=== PATIENT | male | born 1990 ===

== ENCOUNTER 2018-03-10 04:46 | Emergency (ER) | payer SELFPAY ==
[2018-03-10] MEDS ORDERED: Iohexol 240 (50 ml) PO STA (05:03)
[2018-03-10] MEDS ORDERED: Sodium Chloride 0.9% 1,000 ML IV STA ×2 (05:03→06:00)
--- NOTE | 2018-03-10 05:13 | C.PDOC ---
History Of Present Illness 27 year old male presents to the ED complaining of not feeling well for over one week. Complains of generalized body aches, subjective fever, nausea, vomiting, abdominal pain and headache. Denies any diarrhea, cough, urinary symptoms, weakness, numbness, or any other complaints. Chief Complaint (Nursing): Abdominal Pain History Per: Patient History/Exam Limitations: no limitations Onset/Duration Of Symptoms: Days Current Symptoms Are (Timing): Still Present Past Medical History Reviewed: Historical Data, Nursing Documentation, Vital Signs Vital Signs: Last Vital Signs Temp 98.9 F 03/10/18 04:55 Pulse 85 03/10/18 04:55 Resp 16 03/10/18 04:55 BP 119/66 03/10/18 04:55 Pulse Ox 97 03/10/18 04:55 - Medical History PMH: No Chronic Diseases Other Surgeries: Hx of surgeries Family History: States: No Known Family Hx - Social History Hx Alcohol Use: No Hx Substance Use: No Review Of Systems Except As Marked, All Systems Reviewed And Found Negative. Constitutional: Positive for: Fever, Other (bodyaches ) Respiratory: Negative for: Cough Gastrointestinal: Positive for: Nausea, Vomiting, Abdominal Pain. Negative for: Diarrhea Genitourinary: Negative for: Dysuria, Hematuria, Penile Discharge Neurological: Positive for: Headache. Negative for: Weakness, Numbness Physical Exam - Physical Exam Appears: Non-toxic, No Acute Distress Skin: Warm, Dry, No Rash Head: Normacephalic Eye(s): bilateral: Normal Inspection Ear(s): Bilateral: Normal Nose: Normal Oral Mucosa: Moist Tongue: Normal Appearing, No Lesions Lips: Normal Appearing, No Lesions Gingiva: No Ulceration Throat: No Erythema, No Exudate Neck: Normal ROM, Supple Chest: Symmetrical Cardiovascular: Rhythm Regular Respiratory: Normal Breath Sounds, No Rales, No Rhonchi, No Wheezing Gastrointestinal/Abdominal: Soft, Tenderness (diffused tenderness, more to the RLQ) Extremity: Normal ROM Neurological/Psych: Oriented x3, Normal Speech, Normal Cognition Gait: Steady ED Course And Treatment - Laboratory Results Result Diagrams: 03/10/18 05:15 03/10/18 05:15 O2 Sat by Pulse Oximetry: 97 (RA) Pulse Ox Interpretation: Normal Progress Note: CT scan Abd/Pel ordered and reviewed. Blood and Urine collected and sent to the lab for analysis. Patient given Zofran, Protonix, and IV fluids. Patient now refusing abdominal CT and stating he was seen in [facility] ([place]) yesterday, had blood work and CT of abdomen with negative results,. Paatient was told he has viral syndrom and was d/c home. However patient sts he still doesn't feel good that prompted ER visit. IV fluid started, Toradol IV ordered. On re-evaluation patient feels better and is stable to be d/c home with PMD/Clinic follow up. patient was instructed to return to Ed immediately if he feels worse. Disposition - Disposition Disposition: HOME/ ROUTINE Disposition Time: 06:46 Condition: IMPROVED Additional Instructions: Follow up with PMD/clinic within 1-2 days. Return to Ed if feel worse. Prescriptions: Ibuprofen [Motrin Tab] 600 mg PO Q8 #30 tab Ondansetron ODT [Zofran ODT] 4 mg PO .Q4-6H PRN #20 odt PRN Reason: Nausea/Vomiting Instructions: Viral Syndrome (DC) Forms: [employer] (Liberian) Print Language: ARMENIAN - Clinical Impression Clinical Impression: Viral syndrome - PA / DYNAMICS AX TECHNICAL ARCHITECT / Resident Statement MD/DO has reviewed & agrees with the documentation as recorded. - Scribe Statement The provider has reviewed the documentation as recorded by the Scribmatt Melton All medical record entries made by the Neville were at my direction and personally dictated by me. I have reviewed the chart and agree that the record accurately reflects my personal performance of the history, physical exam, medical decision making, and the department course for this patient. I have also personally directed, reviewed, and agree with the discharge instructions and disposition. Physician Patient Turnover Patient Signed Over To: ED Physician,
[2018-03-10 05:19] LABS: BASO % 0.2 % (0.0-2.0); EOS % 0.1 % (0.0-4.0); HEMOGLOBIN 13.8 g/dL (12.0-18.0); LYMPH # 1.1 K/uL (1.0-4.3); LYMPH % 13.1 % (20.0-40.0); MEAN CELL VOLUME 90.2 fL (80.0-94.0); MEAN CORPUSCULAR HEMOGLOBIN 31.4 pg (27.0-31.0); MEAN CORPUSCULAR HGB CONC 34.8 g/dL (33.0-37.0); MEAN PLATELET VOLUME 6.7 fL (7.2-11.7); MONO # 0.7 K/uL (0.0-0.8); MONO % 8.6 % (0.0-10.0); NEUT # 6.7 K/uL (1.8-7.0); RBC 4.39 Mil/uL (4.40-5.90); RED CELL DISTRIBUTION WIDTH 12.2 % (11.5-14.5); WHITE BLOOD COUNT 8.5 K/uL (4.8-10.8)
[2018-03-10 05:34] LABS: ALB/GLOB RATIO 1.4 (1.0-2.1); ALBUMIN 4.1 g/dL (3.5-5.0); ALT/SGPT 27 U/L (21-72); AMYLASE 68 U/L (30-110); AST/SGOT 22 U/L (17-59); BLOOD UREA NITROGEN 12 mg/dL (9-20); CALCIUM 8.4 mg/dl (8.6-10.4); GFR NON-AFRICAN AMERICAN > 60; LIPASE 43 U/L (23-300)
[2018-03-10 06:15] LABS: URINE BILIRUBIN NEGATIVE (NEGATIVE); URINE BLOOD NEGATIVE (NEGATIVE); URINE CLARITY Clear (Clear); URINE COLOR Yellow (YELLOW); URINE GLUCOSE (UA) NORMAL (Normal); URINE LEUKOCYTE ESTERASE NEG Leu/uL (Negative); URINE PROTEIN NEGATIVE (NEGATIVE)
[2018-03-10 07:11] VITALS: BP 128/72; PULSE 79; RESP 20; TEMP 98.2; O2SAT 98
== END 2018-03-10 07:06 | disposition home or self-care (01) ==
LOC: C.ER 04:46
DX: B34.9 Viral infection, unspecified (principal)
CPT/HCPCS: 80053; 81001; 82150; 83690; 85025; 87040; 87086; 87181; 87205; 87804; 96361; 96374; 96375; 99284; C9113; J1885; J2405; J7030

== ENCOUNTER 2018-03-11 10:56 | Inpatient (IN) | payer OTHER ==
[2018-03-11] MEDS ORDERED: Piperacillin/Tazobact 3.375 gm 100 ML IV STA (11:21)
--- NOTE | 2018-03-11 11:30 | C.PDOC ---
History Of Present Illness 27 y/o male, with PMHx of right-sided testicular cancer s/p orchiectomy and 4 months of chemotherapy in [place] (2012), returns to ER after being seen here yesterday. Patient had complaints of body aches, chills, headache, and malaise, and was discharged home after feeling better. Patient was called by a PA to return to ER today for positive blood cultures. He states he currently feels better overall but still has some headache and body aches. Time Seen by Provider: 03/11/18 11:02 Chief Complaint (Nursing): Abnormal Labs History Per: Patient History/Exam Limitations: no limitations Onset/Duration Of Symptoms: Days Current Symptoms Are (Timing): Still Present Past Medical History Reviewed: Historical Data, Nursing Documentation, Vital Signs Vital Signs: Last Vital Signs Temp 99.7 F H 03/11/18 11:01 Pulse 100 H 03/11/18 11:01 Resp 18 03/11/18 11:01 BP 115/77 03/11/18 11:01 Pulse Ox 99 03/11/18 11:01 Family History: States: No Known Family Hx - Social History Hx Alcohol Use: Yes Hx Substance Use: No - Immunization History Hx Tetanus Toxoid Vaccination: No Hx Influenza Vaccination: No Hx Pneumococcal Vaccination: No Review Of Systems Constitutional: Negative for: Fever, Chills Gastrointestinal: Negative for: Nausea, Vomiting Musculoskeletal: Positive for: Other (Body aches) Neurological: Positive for: Headache Physical Exam - Physical Exam Appears: Non-toxic, No Acute Distress Skin: Warm, Dry Head: Atraumatic, Normacephalic Eye(s): bilateral: Normal Inspection Oral Mucosa: Moist Chest: Symmetrical Cardiovascular: Rhythm Regular, No Murmur Respiratory: Normal Breath Sounds, No Rales, No Rhonchi, No Wheezing Gastrointestinal/Abdominal: Tenderness (to suprapubic area, mild), No Guarding, No Rebound, Other (Negative McBurney's) Neurological/Psych: Oriented x3, Normal Speech Gait: Steady ED Course And Treatment - Laboratory Results Result Diagrams: 03/19/18 08:13 03/19/18 08:13 O2 Sat by Pulse Oximetry: 99 (RA) Pulse Ox Interpretation: Normal - Other Rad Chest X-Ray X-Ray: Read By Radiologist Interpretation: FINDINGS: LUNGS: Poor inspiration with low lung volumes, crowded bronchovascular markings and minor bibasilar atelectasis. PLEURA: No significant pleural effusion identified. No pneumothorax apparent. CARDIOVASCUL AR: No aortic atherosclerotic calcification present. Normal cardiac size. No pulmonary vascular congestion. OSSEOUS STRUCTURES: No significant abnormalities. VISUALIZED UPPER ABDOMEN: Normal. OTHER FINDINGS: None. IMPRESSION: Poor inspiration with low lung volumes, crowded bronchovascular markings and minor bibasilar atelectasis Progress Note: Bloodwork, UA, repeat blood cultures, and CXR ordered. Patient given IV Zosyn. - Physician Consult Information Physician Contacted: Alba Lee Outcome Of Conversation: Discussed patient with hospitalist, agrees with admission for bacteremia (gran neg rods). Disposition - Disposition Disposition: HOSPITALIZED Disposition Time: 13:33 Condition: STABLE - Clinical Impression Clinical Impression: Bacteremia due to Gram-negative bacteria - Scribe Statement The provider has reviewed the documentation as recorded by the Vinicioibmatt Mendoza Provider Attestation: All medical record entries made by the Scribe were at my direction and pe rsonally dictated by me. I have reviewed the chart and agree that the record accurately reflects my personal performance of the history, physical exam, medical decision making, and the department course for this patient. I have also personally directed, reviewed, and agree with the discharge instructions and disposition. Decision To Admit - Pt Status Changed To: Hospital Disposition Of: Inpatient - Admit Certification Admit to Inpatient:: After my assessment, the patient will require hospitalization for at least two midnights. This is because of the severity of symptoms shown, intensity of services needed, and/or the medical risk in this patient being treated as an outpatient. - InPatient: Physician Admission Certification: I certify that this patient requires 2 or more midnights of care for the following reason:: see notes - . Bed Request Type: Regular Admitting Physician: Alba Lee Patient Diagnosis: Bacteremia due to Gram-negative bacteria
[2018-03-11 12:00] LABS: BASO % 0.2 % (0.0-2.0); EOS % 0.1 % (0.0-4.0); HEMOGLOBIN 14.4 g/dL (12.0-18.0); LYMPH % 18.9 % (20.0-40.0); MEAN CELL VOLUME 91.5 fL (80.0-94.0); MEAN CORPUSCULAR HEMOGLOBIN 32.2 pg (27.0-31.0); MEAN CORPUSCULAR HGB CONC 35.1 g/dL (33.0-37.0); MEAN PLATELET VOLUME 6.4 fL (7.2-11.7); MONO # 0.6 K/uL (0.0-0.8); MONO % 10.9 % (0.0-10.0); NEUT # 3.8 K/uL (1.8-7.0); NEUT % 69.9 % (50.0-75.0); NRBC % 0.1 % (0.0-2.0); RBC 4.48 Mil/uL (4.40-5.90); RED CELL DISTRIBUTION WIDTH 12.2 % (11.5-14.5); WHITE BLOOD COUNT 5.4 K/uL (4.8-10.8)
[2018-03-11 12:00] LABS: VENOUS BLOOD GAS BASE EXCESS 2.4 mmol/L (0.0-2.0); VENOUS BLOOD GAS PCO2 51 mmHg (40-60); VENOUS BLOOD GAS PO2 27 mm/Hg (30-55); VENOUS BLOOD PH 7.36 (7.32-7.43)
[2018-03-11 12:10] LABS: URINE BILIRUBIN NEGATIVE (NEGATIVE); URINE BLOOD NEGATIVE (NEGATIVE); URINE CLARITY Clear (Clear); URINE COLOR Yellow (YELLOW); URINE GLUCOSE (UA) NORMAL (Normal); URINE LEUKOCYTE ESTERASE NEG Leu/uL (Negative); URINE PROTEIN NEGATIVE (NEGATIVE)
[2018-03-11 12:14] LABS: ALB/GLOB RATIO 1.3 (1.0-2.1); ALBUMIN 4.2 g/dL (3.5-5.0); ALT/SGPT 29 U/L (21-72); AST/SGOT 28 U/L (17-59); BLOOD UREA NITROGEN 13 mg/dL (9-20); CALCIUM 9.2 mg/dl (8.6-10.4); GFR NON-AFRICAN AMERICAN > 60
[2018-03-11] MEDS ORDERED: Piperacillin/Tazobact 3.375 gm 100 ML IVPB ONE (12:23)
--- NOTE | 2018-03-11 15:24 | CP.PCM.HP ---
<Argenis William - Last Filed: 03/11/18 15:18> History of Present Illness - History of Present Illness History of Present Illness: Argenis William PGY1 H&P Pt is a 27yo M with PMH testicular cancer s/p orchiectomy and chemo in 2012, presenting to ED after being told he has positive blood cultures. Pt reports subjective fevers, chills, body aches, nausea, 2 episodes of NB/NB vomiting that began on Monday. He visited the [facility] ED later that week, received a CT of the abdomen which he reports was normal, and was sent home. He visited [facility] ED on 03/10, refused to be scanned again, but blood and urine cultures were obtained. He was discharged before given results, and was later called to return because blood culture was positive for Gram - rods. Pt return to [facility] ED today, but says symptoms have resolved. Pt also reports 10lb weight loss over the past year, claiming he feels full faster than before and has decreased appetite. He denies any chest pain, shortness of breath, abdominal pain, diarrhea, dysuria, pyuria, or difficulty urinating. PMH: testicular cancer s/p orchiectomy and chemo in 2012, followed for 4 years after and was told he was clear. did not follow this year SxH: orchiectomy 2013 FamH: denies SocH: denies tobacco, alcohol, recreational drug use. works in a restaurant Allergies: NKDA Meds: none PMD: none Present on Admission - Present on Admission Any Indicators Present on Admission: No Review of Systems - Review of Systems Review of Systems: as per HPI Past Patient History - Past Social History Smoking Status: Never Smoked - HEMATOLOGICAL/ONCOLOGICAL Hx Blood Disorders: Yes Hx Cancer: Yes (testicular - removed) - PSYCHIATRIC Hx Substance Use: No - SURGICAL HISTORY Hx Surgeries: Yes Other/Comment: removal of cancerous testicle Meds Allergies/Adverse Reactions: Allergies Allergy/AdvReac Type Severity Reaction Status Date / Time No Known Allergies Allergy Verified 03/11/18 11:05 Physical Exam - Constitutional Appears: Well, Non-toxic, No Acute Distress - Head Exam Head Exam: ATRAUMATIC, NORMOCEPHALIC - Eye Exam Eye Exam: EOMI, Normal appearance, PERRL - ENT Exam ENT Exam: Mucous Membranes Moist - Neck Exam Neck exam: Positive for: Full Rom, Normal Inspection. Negative for: Lymphadenopathy, Tenderness - Respiratory Exam Respiratory Exam: Clear to Auscultation Bilateral, NORMAL BREATHING PATTERN. absent: Rales, Rhonchi, Wheezes, Respiratory Distress - Cardiovascular Exam Cardiovascular Exam: REGULAR RHYTHM, +S1. absent: Gallop, Rubs, +S2, Systolic Murmur - GI/Abdominal Exam GI & Abdominal Exam: Normal Bowel Sounds, Soft. absent: Distended, Firm, Tenderness - Extremities Exam Extremities exam: Positive for: normal inspection. Negative for: pedal edema - Neurological Exam Neurological exam: Alert, CN II-XII Intact, Oriented x3 - Psychiatric Exam Psychiatric exam: Normal Affect, Normal Mood - Skin Skin Exam: Normal Color Results - Vital Signs Recent Vital Signs: Last Vital Signs Temp 98.7 F 03/11/18 13:24 Pulse 74 03/11/18 13:24 Resp 18 03/11/18 13:24 BP 123/71 03/11/18 13:24 Pulse Ox 99 03/11/18 13:41 - Labs Result Diagrams: 03/11/18 11:51 03/11/18 11:51 Labs: Laboratory Results - last 24 hr 03/11/18 03/11/18 03/11/18 11:51 11:51 11:51 WBC 5.4 RBC 4.48 Hgb 14.4 Hct 41.0 MCV 91.5 MCH 32.2 H MCHC 35.1 RDW 12.2 Plt Count 178 MPV 6.4 L Neut % (Auto) 69.9 Lymph % (Auto) 18.9 L [place] % (Auto) 10.9 H Eos % (Auto) 0.1 Baso % (Auto) 0.2 Neut # (Auto) 3.8 Lymph # (Auto) 1.0 [place] # (Auto) 0.6 Eos # (Auto) 0.0 Baso # (Auto) 0.0 pO2 VBG pH VBG pCO2 VBG HCO3 VBG Total CO2 VBG O2 Sat (Calc) VBG Base Excess VBG Potassium Glucose Lactate Sodium 138 Potassium 4.0 Chloride 100 Carbon Dioxide 28 Anion Gap 14 BUN 13 Creatinine 0.8 Est GFR ( Amer) > 60 Est GFR (Non-Af Amer) > 60 Random Glucose 82 Calcium 9.2 Total Bilirubin 0.6 AST 28 ALT 29 Alkaline Phosphatase 55 Total Protein 7.4 Albumin 4.2 Globulin 3.2 Albumin/Globulin Ratio 1.3 Venous Blood Potassium Urine Color Yellow Urine Clarity Clear Urine pH 8.0 Ur Specific [place] 1.019 Urine Protein Negative Urine Glucose (UA) Normal Urine Ketones Negative Urine Blood Negative Urine Nitrate Negative Urine Bilirubin Negative Urine Urobilinogen 4.0 Ur Leukocyte Esterase Neg Urine WBC (Auto) 1 Urine RBC (Auto) 2 03/11/18 11:54 WBC RBC Hgb Hct MCV MCH MCHC RDW Plt Count MPV Neut % (Auto) Lymph % (Auto) Y[place] % (Auto) Eos % (Auto) Baso % (Auto) Neut # (Auto) Lymph # (Auto) [place] # (Auto) Eos # (Auto) Baso # (Auto) pO2 27 L VBG pH 7.36 VBG pCO2 51 VBG HCO3 25.4 VBG Total CO2 30.4 H VBG O2 Sat (Calc) 58.4 VBG Base Excess 2.4 H VBG Potassium 3.7 Glucose 77 Lactate 1.9 Sodium 138.0 Potassium Chloride 105.0 Carbon Dioxide Anion Gap BUN Creatinine Est GFR ( Amer) Est GFR (Non-Af Amer) Random Glucose Calcium Total Bilirubin AST ALT Alkaline Phosphatase Total Protein Albumin Globulin Albumin/Globulin Ratio Venous Blood Potassium 3.7 Urine Color Urine Clarity Urine pH Ur Specific [place] Urine Protein Urine Glucose (UA) Urine Ketones Urine Blood Urine Nitrate Urine Bilirubin Urine Urobilinogen Ur Leukocyte Esterase Urine WBC (Auto) Urine RBC (Auto) Assessment & Plan - Assessment and Plan (Free Text) Assessment: 27yo M with H testicular cancer s/p orchiectomy and chemo in 2012, admitted for further evaluation and treatment of Gram - consuelo bacteremia. Plan: Bacteremia - BCx: Gram - consuelo - pt afebrile, no leukocytosis, asymptomatic - UCx: neg - UA: neg - f/u rpt BCx - f/u CXR - ID consulted, Dr. Florence - f/u recs Testicular Cancer - s/p orchiectomy and chemo in 2012 - encourage outpt follow up with oncology PPX DVT: SCDs HHD Patient seen with and case discussed with Dr. Joshi <Ahmet Joshi - Last Filed: 03/11/18 17:13> Results - Vital Signs Recent Vital Signs: Last Vital Signs Temp 98 F 03/11/18 15:38 Pulse 62 03/11/18 15:38 Resp 18 03/11/18 15:38 BP 136/69 03/11/18 15:38 Pulse Ox 100 03/11/18 15:38 - Labs Result Diagrams: 03/11/18 11:51 03/11/18 11:51 Labs: Laboratory Results - last 24 hr 03/11/18 03/11/18 03/11/18 11:51 11:51 11:51 WBC 5.4 RBC 4.48 Hgb 14.4 Hct 41.0 MCV 91.5 MCH 32.2 H MCHC 35.1 RDW 12.2 Plt Count 178 MPV 6.4 L Neut % (Auto) 69.9 Lymph % (Auto) 18.9 L [place] % (Auto) 10.9 H Eos % (Auto) 0.1 Baso % (Auto) 0.2 Neut # (Auto) 3.8 Lymph # (Auto) 1.0 [place] # (Auto) 0.6 Eos # (Auto) 0.0 Baso # (Auto) 0.0 pO2 VBG pH VBG pCO2 VBG HCO3 VBG Total CO2 VBG O2 Sat (Calc) VBG Base Excess VBG Potassium Glucose Lactate Sodium 138 Potassium 4.0 Chloride 100 Carbon Dioxide 28 Anion Gap 14 BUN 13 Creatinine 0.8 Est GFR ( Amer) > 60 Est GFR (Non-Af Amer) > 60 Random Glucose 82 Calcium 9.2 Total Bilirubin 0.6 AST 28 ALT 29 Alkaline Phosphatase 55 Total Protein 7.4 Albumin 4.2 Globulin 3.2 Albumin/Globulin Ratio 1.3 Venous Blood Potassium Urine Color Yellow Urine Clarity Clear Urine pH 8.0 Ur Specific [place] 1.019 Urine Protein Negative Urine Glucose (UA) Normal Urine Ketones Negative Urine Blood Negative Urine Nitrate Negative Urine Bilirubin Negative Urine Urobilinogen 4.0 Ur Leukocyte Esterase Neg Urine WBC (Auto) 1 Urine RBC (Auto) 2 03/11/18 11:54 WBC RBC Hgb Hct MCV MCH MCHC RDW Plt Count MPV Neut % (Auto) Lymph % (Auto) [place] % (Auto) Eos % (Auto) Baso % (Auto) Neut # (Auto) Lymph # (Auto) [place] # (Auto) Eos # (Auto) Baso # (Auto) pO2 27 L VBG pH 7.36 VBG pCO2 51 VBG HCO3 25.4 VBG Total CO2 30.4 H VBG O2 Sat (Calc) 58.4 VBG Base Excess 2.4 H VBG Potassium 3.7 Glucose 77 Lactate 1.9 Sodium 138.0 Potassium Chloride 105.0 Carbon Dioxide Anion Gap BUN Creatinine Est GFR ( Amer) Est GFR (Non-Af Amer) Random Glucose Calcium Total Bilirubin AST ALT Alkaline Phosphatase Total Protein Albumin Globulin Albumin/Globulin Ratio Venous Blood Potassium 3.7 Urine Color Urine Clarity Urine pH Ur Specific [place] Urine Protein Urine Glucose (UA) Urine Ketones Urine Blood Urine Nitrate Urine Bilirubin Urine Urobilinogen Ur Leukocyte Esterase Urine WBC (Auto) Urine RBC (Auto) Attending/Attestation - Attestation I have personally seen and examined this patient.: Yes I have fully participated in the care of the patient.: Yes I have reviewed all pertinent clinical information: Yes Notes (Text): Patient seen and examined with the residents, agree with above no complaints at this this time. Denies fever/chills/cough/chest pain/sob/n/v/d/c/abdominal pain/urinary complaints blood cultures x2 with gram negative bacteremia. Will repeat blood cx today Afebrile, no leukocytosis. Will get ID with Dr Florence for his expert opinion.
--- NOTE | 2018-03-11 15:47 | RAD ---
Date of service: 03/11/2018 HISTORY: bacteremia COMPARISON: No prior. TECHNIQUE: Chest PA and lateral FINDINGS: LUNGS: Poor inspiration with low lung volumes, crowded bronchovascular markings and minor bibasilar atelectasis PLEURA: No significant pleural effusion identified. No pneumothorax apparent. CARDIOVASCULAR: No aortic atherosclerotic calcification present. Normal cardiac size. No pulmonary vascular congestion. OSSEOUS STRUCTURES: No significant abnormalities. VISUALIZED UPPER ABDOMEN: Normal. OTHER FINDINGS: None. IMPRESSION: Poor inspiration with low lung volumes, crowded bronchovascular markings and minor bibasilar atelectasis
--- NOTE | 2018-03-11 17:42 | CP.PCM.CON ---
History of Present Illness - History of Present Illness History of Present Illness: 27 yo male was recently seen in ER in [facility] for flu like symptoms, subsequently came to for follow up where blood cultures were drawn which came back positive for gram negative rods Now admitted for treatment of the same hx reviewed + PMH of testicular Ca 2013 Review of Systems - Review of Systems All systems: reviewed and no additional remarkable complaints except - Constitutional Constitutional: As Per HPI - EENT Eyes: absent: As Per HPI, Blind Spots, Blurred Vision, Change in Vision, Decreased Night Vision, Diplopia, Discharge, Dry Eye, Exophthalmos, Floaters, Irritation, Itchy Eyes, Loss of Peripheral Vision, Pain, Photophobia, Requires Corrective Lenses, Sees Flashes, Spots in Vision, Tunnel Vision, Other Visual Disturbances, Loss of Vision, Other Ears: absent: As Per HPI, Decreased Hearing, Ear Discharge, Ear Pain, Tinnitus, Abnormal Hearing, Disequilibrium, Dizziness, Other Nose/Mouth/Throat: absent: As Per HPI, Epistaxis, Nasal Congestion, Nasal Discharge, Nasal Obstruction, Nasal Trauma, Nose Pain, Post Nasal Drip, Sinus Pain, Sinus Pressure, Bleeding Gums, Change in Voice, Dental Pain, Dry Mouth, Dysphagia, Halitosis, Hoarsness, Lip Swelling, Mouth Lesions, Mouth Pain, Odynophagia, Sore Throat, Throat Swelling, Tongue Swelling, Facial Pain, Neck Pain, Neck Mass, Other - Cardiovascular Cardiovascular: absent: As Per HPI, Acrocyanosis, Chest Pain, Chest Pain at Rest, Chest Pain with Activity, Claudication, Diaphoresis, Dyspnea, Dyspnea on Exertion, Edema, Irregular Heart Rhythm, Pain Radiating to Arm/Neck/Jaw, Leg Edema, Leg Ulcers, Lightheadedness, Orthopnea, Palpitations, Paroxysmal Nocturnal Dyspnea, Pedal Edema, Radiating Pain, Rapid Heart Rate, Slow Heart Rate, Syncope, Other - Respiratory Respiratory: absent: As Per HPI, Cough, Dyspnea, Hemoptysis, Dyspnea on Exertion, Wheezing, Snoring, Stridor, Pain on Inspiration, Chest Congestion, Excessive Mucous Production, Change in Mucous Color, Pain with Coughing, Other - Gastrointestinal Gastrointestinal: absent: As Per HPI, Abdominal Pain, Belching, Bloating, Change in Bowel Habits, Change in Stool Character, Coffee Ground Emesis, Constipation, Cramping, Diarrhea, Dyspepsia, Dysphagia, Early Satiety, Excessive Flatus, Fecal Incontinence, Heartburn, Hematemesis, Hematochezia, Loose Stools, Melena, Nausea, Odynophagia, Temesmus, Vomiting, Other - Genitourinary Genitourinary: absent: As Per HPI, Change in Urinary Stream, Difficulty Urinating, Dysuria, Flank Pain, Hematuria, Pyuria, Nocturia, Urinary Incontinence, Urinary Frequency, Urinary Hesitance, Urinary Urgency, Voiding Freq/Small Amts, Freq UTI, Hx Renal/Bladder Calculi, Hx /Renal Surgery, Bladder Distension, Other - Reproductive: Male Reproductive:Male: As Per HPI - Musculoskeletal Musculoskeletal: absent: As Per HPI, Abnormal Gait, Arthralgias, Atrophy, Back Pain, Deformity, Joint Swelling, Limited Range of Motion, Loss of Height, Muscle Cramps, Muscle Weakness, Myalgias, Neck Pain, Numbness, Radiating Pain into Limb, Stiffness, Tingling, Other - Integumentary Integumentary: absent: As Per HPI, Acne, Alopecia, Bleeding Lesions, Change in Hair, Change in Nails, Change in Pigmentation, Changing Lesions, Dry Skin, Erythema, Furuncle, Hirsutism, Lesions, New Lesions, Non-Healing Lesions, Photosensitivity, Pruritus, Rash, Skin Pain, Skin Ulcer, Sores, Striae, Swelling, Unusual Bruising, Wounds, Jaundice, Other - Neurological Neurological: absent: As Per HPI, Abnormal Gait, Abnormal Hearing, Abnormal Movements, Abnormal Speech, Behavioral Changes, Burning Sensations, Confusion, Convulsions, Disequilibrium, Dizziness, Numbness, Focal Weakness, Frequent Falls, Headaches, Lack of Coordination, Loss of Vision, Memory Loss, Paresthesias, Radicular Pain, Restless Legs, Sensory Deficit, Syncope, Tingling, Tremor, Vertigo, Weakness, Other Visual Disturbances, Other - Psychiatric Psychiatric: absent: As Per HPI, Abnormal Sleep Pattern, Anhedonia, Anxiety, Auditory Hallucinations, Behavioral Changes, Change in Appetite, Change in Libido, Confusion, Depression, Difficulty Concentrating, Hallucinations, Homicidal Ideation, Hopelessness, Irritability, Memory Loss, Mood Swings, Panic Attacks, Paranoia, Suicidal Ideation, Visual Hallucinations, Tactile Hallucinations, Other - Endocrine Endocrine: absent: As Per HPI, Change in Body Appearance, Change in Libido, Cold Intolorance, Deepening of Voice, Excessive Sweating, Fatigue, Flushing, Heat Intolorance, Increase in Ring/Shoe/Hat Size, Palpitations, Polydipsia, Polyphagia, Polyuria, Other - Hematologic/Lymphatic Hematologic: As Per HPI Past Patient History - Past Social History Smoking Status: Never Smoked - HEMATOLOGICAL/ONCOLOGICAL Hx Blood Disorders: Yes Hx Cancer: Yes (testicular - removed) - PSYCHIATRIC Hx Substance Use: No - SURGICAL HISTORY Hx Surgeries: Yes Other/Comment: removal of cancerous testicle Meds Allergies/Adverse Reactions: Allergies Allergy/AdvReac Type Severity Reaction Status Date / Time No Known Allergies Allergy Verified 03/11/18 11:05 - Medications Medications: Current Medications Piperacillin Sod/Tazobactam Sod (Zosyn 3.375 Gm Iv Premix) 3.375 gm in 50 mls @ 200 mls/hr IVPB Q8H [facility]; Protocol Ondansetron HCl (Zofran Inj) 4 mg IVP Q6 PRN PRN Reason: Nausea/Vomiting Physical Exam - Constitutional Appears: Non-toxic, No Acute Distress - Head Exam Head Exam: NORMOCEPHALIC - Eye Exam Eye Exam: Scleral icterus - ENT Exam ENT Exam: Mucous Membranes Dry - Neck Exam Neck exam: Positive for: Normal Inspection - Respiratory Exam Respiratory Exam: Clear to Auscultation Bilateral - Cardiovascular Exam Cardiovascular Exam: REGULAR RHYTHM - GI/Abdominal Exam GI & Abdominal Exam: Soft - Rectal Exam Rectal Exam: Deferred - Extremities Exam Extremities exam: Positive for: full ROM - Back Exam Back exam: FULL ROM - Neurological Exam Neurological exam: Alert, CN II-XII Intact, Oriented x3 - Psychiatric Exam Psychiatric exam: Normal Mood - Skin Skin Exam: Dry Results - Vital Signs Recent Vital Signs: Last Vital Signs Temp 98 F 03/11/18 15:38 Pulse 62 03/11/18 15:38 Resp 18 03/11/18 15:38 BP 136/69 03/11/18 15:38 Pulse Ox 99 03/11/18 17:32 - Labs Result Diagrams: 03/11/18 11:51 03/11/18 11:51 Labs: Laboratory Results - last 24 hr 03/11/18 03/11/18 03/11/18 11:51 11:51 11:51 WBC 5.4 RBC 4.48 Hgb 14.4 Hct 41.0 MCV 91.5 MCH 32.2 H MCHC 35.1 RDW 12.2 Plt Count 178 MPV 6.4 L Neut % (Auto) 69.9 Lymph % (Auto) 18.9 L [place] % (Auto) 10.9 H Eos % (Auto) 0.1 Baso % (Auto) 0.2 Neut # (Auto) 3.8 Lymph # (Auto) 1.0 [place] # (Auto) 0.6 Eos # (Auto) 0.0 Baso # (Auto) 0.0 pO2 VBG pH VBG pCO2 VBG HCO3 VBG Total CO2 VBG O2 Sat (Calc) VBG Base Excess VBG Potassium Glucose Lactate Sodium 138 Potassium 4.0 Chloride 100 Carbon Dioxide 28 Anion Gap 14 BUN 13 Creatinine 0.8 Est GFR ( Amer) > 60 Est GFR (Non-Af Amer) > 60 Random Glucose 82 Calcium 9.2 Total Bilirubin 0.6 AST 28 ALT 29 Alkaline Phosphatase 55 Total Protein 7.4 Albumin 4.2 Globulin 3.2 Albumin/Globulin Ratio 1.3 Venous Blood Potassium Urine Color Yellow Urine Clarity Clear Urine pH 8.0 Ur Specific [place] 1.019 Urine Protein Negative Urine Glucose (UA) Normal Urine Ketones Negative Urine Blood Negative Urine Nitrate Negative Urine Bilirubin Negative Urine Urobilinogen 4.0 Ur Leukocyte Esterase Neg Urine WBC (Auto) 1 Urine RBC (Auto) 2 03/11/18 11:54 WBC RBC Hgb Hct MCV MCH MCHC RDW Plt Count MPV Neut % (Auto) Lymph % (Auto) [place] % (Auto) Eos % (Auto) Baso % (Auto) Neut # (Auto) Lymph # (Auto) [place] # (Auto) Eos # (Auto) Baso # (Auto) pO2 27 L VBG pH 7.36 VBG pCO2 51 VBG HCO3 25.4 VBG Total CO2 30.4 H VBG O2 Sat (Calc) 58.4 VBG Base Excess 2.4 H VBG Potassium 3.7 Glucose 77 Lactate 1.9 Sodium 138.0 Potassium Chloride 105.0 Carbon Dioxide Anion Gap BUN Creatinine Est GFR ( Amer) Est GFR (Non-Af Amer) Random Glucose Calcium Total Bilirubin AST ALT Alkaline Phosphatase Total Protein Albumin Globulin Albumin/Globulin Ratio Venous Blood Potassium 3.7 Urine Color Urine Clarity Urine pH Ur Specific [place] Urine Protein Urine Glucose (UA) Urine Ketones Urine Blood Urine Nitrate Urine Bilirubin Urine Urobilinogen Ur Leukocyte Esterase Urine WBC (Auto) Urine RBC (Auto) Assessment & Plan (1) Viral syndrome Status: Acute - Assessment and Plan (Free Text) Assessment: gram neg bacteremia on blood cultures of unclear significance- contamination? l
[2018-03-11] MEDS: Piperacill/Tazo 3.375gm in Dex 3.375 GM/50 ML BAG IVPB SCH (20:04)
[2018-03-12] MEDS: Piperacill/Tazo 3.375gm in Dex 3.375 GM/50 ML BAG IVPB SCH (04:20)
--- NOTE | 2018-03-12 07:44 | CP.PCM.PN ---
<Miguel Casanova - Last Filed: 03/12/18 19:20> Subjective - Date & Time of Evaluation Date of Evaluation: 03/12/18 Time of Evaluation: 07:43 - Subjective Subjective: PGY-1 Medicine progress note for Dr. Garibay Patient seen and examined at bedside. Patient had a fever of 101.8 last night and was given Tylenol. Patient has no complaints at this time. He denies chills, headache, shortness of breath, chest pain, abdominal pain, nausea, vomiting, or diarrhea. Objective - Vital Signs/Intake and Output Vital Signs (last 24 hours): Temp Pulse Resp BP Pulse Ox 97.3 F L 68 20 116/73 98 03/12/18 05:00 03/12/18 00:05 03/12/18 00:05 03/12/18 00:05 03/12/18 00:05 - Medications Medications: Current Medications Acetaminophen (Tylenol 325mg Tab) 650 mg PO Q6 PRN PRN Reason: Fever >100.4 F Last Admin: 03/12/18 00:27 Dose: 650 mg Piperacillin Sod/Tazobactam Sod (Zosyn 3.375 Gm Iv Premix) 3.375 gm in 50 mls @ 200 mls/hr IVPB Q8H [facility]; Protocol Last Admin: 03/12/18 04:20 Dose: 200 mls/hr Ondansetron HCl (Zofran Inj) 4 mg IVP Q6 PRN PRN Reason: Nausea/Vomiting - Labs Labs: 03/11/18 11:51 03/11/18 11:51 - Additional Findings Additional findings: - Constitutional Appears: Well, Non-toxic, No Acute Distress - Head Exam Head Exam: ATRAUMATIC, NORMOCEPHALIC - Eye Exam Eye Exam: EOMI, Normal appearance, PERRL - ENT Exam ENT Exam: Mucous Membranes Moist - Neck Exam Neck exam: Positive for: Full Rom, Normal Inspection. Negative for: Lymphadenopathy, Tenderness - Respiratory Exam Respiratory Exam: Clear to Auscultation Bilateral, NORMAL BREATHING PATTERN. absent: Rales, Rhonchi, Wheezes, Respiratory Distress - Cardiovascular Exam Cardiovascular Exam: REGULAR RHYTHM, +S1. absent: Gallop, Rubs, +S2, Systolic Murmur - GI/Abdominal Exam GI & Abdominal Exam: Normal Bowel Sounds, Soft. absent: Distended, Firm, Tenderness - Extremities Exam Extremities exam: Positive for: normal inspection. Negative for: pedal edema - Neurological Exam Neurological exam: Alert, CN II-XII Intact, Oriented x3 - Psychiatric Exam Psychiatric exam: Normal Affect, Normal Mood - Skin Skin Exam: Normal Color Assessment and Plan - Assessment and Plan (Free Text) Assessment: 27 yo M with PMH testicular cancer s/p orchiectomy and chemo in 2012, admitted for bacteremia. Plan: Bacteremia: - Blood culture (03/10): Salmonella sp - Patient had a fever of 101.8 last night - Ciprofloxacin 400mg IV Q12 - UCx: negative - UA: negative - Repeat blood culture: f/u - CXR (03/11): no active disease - ID consulted, Dr. Florence Testicular Cancer: - S/p orchiectomy and chemo in 2012 - Encourage outpatient follow up with oncology PPX DVT: SCDs HHD Patient seen with and case discussed with Dr. Phoenix Casanova PGY-1 <Jennifer Garibay V - Last Filed: 03/18/18 01:24> Objective - Vital Signs/Intake and Output Vital Signs (last 24 hours): Temp Pulse Resp BP Pulse Ox 98.0 F 80 20 100/60 100 03/17/18 23:34 03/18/18 00:16 03/17/18 15:15 03/17/18 15:15 03/17/18 15:15 Intake and Output: 03/17/18 03/18/18 18:59 06:59 Intake Total 1700 1300 Balance 1700 1300 - Medications Medications: Current Medications Acetaminophen (Tylenol 325mg Tab) 650 mg PO Q6H [facility]IE Stop: 03/18/18 06:00 Last Admin: 03/17/18 23:34 Dose: Not Given Heparin Sodium (Porcine) (Heparin) 5,000 units SC Q8 JODIE Last Admin: 03/17/18 21:35 Dose: 5,000 units Sodium Chloride (Sodium Chloride 0.9%) 1,000 mls @ 150 mls/hr IV .Q6H40M [facility]ODIE Last Admin: 03/17/18 19:02 Dose: 150 mls/hr Ceftriaxone Sodium 2 gm/ (Sodium Chloride) 100 mls @ 100 mls/hr IVPB Q12 [facility]; Protocol Last Admin: 03/17/18 21:34 Dose: 100 mls/hr Ibuprofen (Motrin Tab) 600 mg PO Q6H [facility]ODIE Stop: 03/18/18 03:00 Last Admin: 03/17/18 21:35 Dose: 600 mg Lactobacillus Acidophilus (Bacid Acidophilus) 1 cap PO BID [facility] Last Admin: 03/17/18 17:58 Dose: 1 cap Ondansetron HCl (Zofran Inj) 4 mg IVP Q6 PRN PRN Reason: Nausea/Vomiting Pantoprazole Sodium (Protonix Ec Tab) 40 mg PO DAILY JODIE Last Admin: 03/17/18 03:02 Dose: 40 mg Vitamin A (Vitamin A & D Oint Ud Foilpak) 1 ea EXT Q8 PRN PRN Reason: Itching / Pruritus Last Admin: 03/12/18 20:47 Dose: 1 ea - Labs Labs: 03/17/18 09:15 03/17/18 09:15 Attending/Attestation - Attestation I have personally seen and examined this patient.: Yes I have fully participated in the care of the patient.: Yes I have reviewed all pertinent clinical information, including history, physical exam and plan: Yes Notes (Text): This is late computer entry for 03/12/18. Patient seen, examined, and case discussed with day-time resident. This is a 28 year old Male with past medical history of testicular cancer who has follow-up for the past 3 years at another facility who comes in following abnormal blood cultures drawn from the ED on 03/10/18. Patient's blood cultures have finalized reflecting Salmonella bacteremia, resident has spoken with infectious disease consult given the finalization of cultures as well we will need to inform infectious disease nurseLeela regarding Salmonella. Antibiotics adjusted per guidance of ID.
[2018-03-12 08:51] LABS: BASO % 0.2 % (0.0-2.0); EOS # 0.1 K/uL (0.0-0.7); EOS % 1.1 % (0.0-4.0); HEMOGLOBIN 14.4 g/dL (12.0-18.0); LYMPH # 1.7 K/uL (1.0-4.3); LYMPH % 28.2 % (20.0-40.0); MEAN CELL VOLUME 90.3 fL (80.0-94.0); MEAN CORPUSCULAR HEMOGLOBIN 31.4 pg (27.0-31.0); MEAN CORPUSCULAR HGB CONC 34.8 g/dL (33.0-37.0); MEAN PLATELET VOLUME 6.8 fL (7.2-11.7); MONO # 0.8 K/uL (0.0-0.8); MONO % 13.1 % (0.0-10.0); NEUT # 3.4 K/uL (1.8-7.0); NEUT % 57.4 % (50.0-75.0); RBC 4.59 Mil/uL (4.40-5.90); RED CELL DISTRIBUTION WIDTH 12.5 % (11.5-14.5)
[2018-03-12 10:12] LABS: ALB/GLOB RATIO 1.3 (1.0-2.1); ALBUMIN 4.1 g/dL (3.5-5.0); ALT/SGPT 31 U/L (21-72); AST/SGOT 34 U/L (17-59); BLOOD UREA NITROGEN 14 mg/dL (9-20); CALCIUM 9.2 mg/dl (8.6-10.4); GFR NON-AFRICAN AMERICAN > 60
--- NOTE | 2018-03-12 11:38 | CP.PCM.PN ---
Subjective - Date & Time of Evaluation Date of Evaluation: 03/12/18 Time of Evaluation: 08:00 - Subjective Subjective: blood c/s + for salmonella from ER repeat c/s pending switched to Cipro Objective - Vital Signs/Intake and Output Vital Signs (last 24 hours): Temp Pulse Resp BP Pulse Ox 98.8 F 75 20 108/67 96 03/12/18 07:34 03/12/18 07:34 03/12/18 07:34 03/12/18 07:34 03/12/18 07:34 - Medications Medications: Current Medications Acetaminophen (Tylenol 325mg Tab) 650 mg PO Q6 PRN PRN Reason: Fever >100.4 F Last Admin: 03/12/18 00:27 Dose: 650 mg Ciprofloxacin (Cipro 400mg/200ml Dsw) 400 mg in 200 mls @ 133 mls/hr IVPB Q12H [facility]; Protocol Influenza Virus Vaccine (Fluzone Quad [id number]) 60 mcg IM .ONCE ONE Stop: 03/14/18 10:01 Ondansetron HCl (Zofran Inj) 4 mg IVP Q6 PRN PRN Reason: Nausea/Vomiting Pneumococcal Polyvalent Vaccine (Pneumovax 23 Vaccine) 0.5 ml IM .ONCE ONE Stop: 03/14/18 10:01 - Labs Labs: 03/12/18 08:37 03/12/18 08:37 Assessment and Plan (1) Viral syndrome Status: Acute
[2018-03-12] MEDS: Ciprofloxacin 400mg/200ml D5W 400 MG/200 ML BAG IVPB SCH (12:36)
[2018-03-12] MEDS ORDERED: Vitamins A & D Oint UD Foilpak EXT PRN (20:30)
[2018-03-13] MEDS: Ciprofloxacin 400mg/200ml D5W 400 MG/200 ML BAG IVPB SCH ×3 (00:10→23:17)
--- NOTE | 2018-03-13 07:39 | CP.PCM.PN ---
<Miguel Casanova - Last Filed: 03/13/18 14:14> Subjective - Date & Time of Evaluation Date of Evaluation: 03/13/18 Time of Evaluation: 07:39 - Subjective Subjective: PGY-1 Medicine progress note for Dr. Haas Patient seen and examined at bedside. No acute events overnight. Patient complains of diffuse abdominal pain and one episode of loose bowel movement. He denies fevers, chills, shortness of breath, chest pain, nausea, vomiting, or blood in stool. Objective - Vital Signs/Intake and Output Vital Signs (last 24 hours): Temp Pulse Resp BP Pulse Ox 98.0 F 60 20 96/59 L 95 03/13/18 00:00 03/13/18 00:00 03/13/18 00:00 03/13/18 00:00 03/13/18 00:00 - Medications Medications: Current Medications Acetaminophen (Tylenol 325mg Tab) 650 mg PO Q6 PRN PRN Reason: Headache Last Admin: 03/12/18 20:46 Dose: 650 mg Ciprofloxacin (Cipro 400mg/200ml Dsw) 400 mg in 200 mls @ 133 mls/hr IVPB Q12H [facility]; Protocol Last Admin: 03/13/18 00:10 Dose: 133 mls/hr Influenza Virus Vaccine (Fluzone Quad [id number]) 60 mcg IM .ONCE ONE Stop: 03/14/18 10:01 Ondansetron HCl (Zofran Inj) 4 mg IVP Q6 PRN PRN Reason: Nausea/Vomiting Pneumococcal Polyvalent Vaccine (Pneumovax 23 Vaccine) 0.5 ml IM .ONCE ONE Stop: 03/14/18 10:01 Vitamin A (Vitamin A & D Oint Ud Foilpak) 1 ea EXT Q8 PRN PRN Reason: Itching / Pruritus Last Admin: 03/12/18 20:47 Dose: 1 ea - Labs Labs: 03/12/18 08:37 03/12/18 08:37 - Additional Findings Additional findings: - Constitutional Appears: Well, Non-toxic, No Acute Distress - Head Exam Head Exam: ATRAUMATIC, NORMOCEPHALIC - Eye Exam Eye Exam: EOMI, Normal appearance, PERRL - ENT Exam ENT Exam: Mucous Membranes Moist - Neck Exam Neck exam: Positive for: Full Rom, Normal Inspection. Negative for: Lymphadenopathy, Tenderness - Respiratory Exam Respiratory Exam: Clear to Auscultation Bilateral, NORMAL BREATHING PATTERN. absent: Rales, Rhonchi, Wheezes, Respiratory Distress - Cardiovascular Exam Cardiovascular Exam: REGULAR RHYTHM, +S1. absent: Gallop, Rubs, +S2, Systolic Murmur - GI/Abdominal Exam GI & Abdominal Exam: Epigastric region tender to palpation. Normal Bowel Sounds, Soft. absent: Distended, Firm - Extremities Exam Extremities exam: Positive for: normal inspection. Negative for: pedal edema - Neurological Exam Neurological exam: Alert, CN II-XII Intact, Oriented x3 - Psychiatric Exam Psychiatric exam: Normal Affect, Normal Mood - Skin Skin Exam: Normal Color Assessment and Plan - Assessment and Plan (Free Text) Assessment: 27 yo M with [facility] testicular cancer s/p orchiectomy and chemo in 2012, admitted for bacteremia. Plan: Bacteremia: - Blood culture (03/10): Salmonella group B - Ciprofloxacin 400mg IV Q12 (started on 03/12) - UCx: negative - UA: negative - Influenza A/B: negative - Stool culture: f/u - HIV: f/u - Repeat blood culture (02/08): no growth to date - CXR (03/11): no active disease - ID consulted, Dr. Florence Testicular Cancer: - S/p orchiectomy and chemo in 2012 - Encourage outpatient follow up with oncology PPX DVT: SCDs HHD Patient seen with and case discussed with Dr. Samina Casanova, PGY-1 <Laci Haas - Last Filed: 03/13/18 17:57> Objective - Vital Signs/Intake and Output Vital Signs (last 24 hours): Temp Pulse Resp BP Pulse Ox 98.6 F 75 20 119/74 95 03/13/18 16:12 03/13/18 16:12 03/13/18 16:12 03/13/18 16:12 03/13/18 16:12 - Medications Medications: Current Medications Acetaminophen (Tylenol 325mg Tab) 650 mg PO Q6 PRN PRN Reason: Headache Last Admin: 03/12/18 20:46 Dose: 650 mg Ciprofloxacin (Cipro 400mg/200ml Dsw) 400 mg in 200 mls @ 133 mls/hr IVPB Q12H [facility]; Protocol Last Admin: 03/13/18 10:58 Dose: 133 mls/hr Sodium Chloride (Sodium Chloride 0.9%) 1,000 mls @ 150 mls/hr IV .Q6H40M [facility] Last Admin: 03/13/18 14:45 Dose: 150 mls/hr Influenza Virus Vaccine (Fluzone Quad [id number]) 60 mcg IM .ONCE ONE Stop: 03/14/18 10:01 Lactobacillus Acidophilus (Bacid Acidophilus) 1 cap PO BID [facility] Last Admin: 03/13/18 17:41 Dose: 1 cap Ondansetron HCl (Zofran Inj) 4 mg IVP Q6 PRN PRN Reason: Nausea/Vomiting Pneumococcal Polyvalent Vaccine (Pneumovax 23 Vaccine) 0.5 ml IM .ONCE ONE Stop: 03/14/18 10:01 Vitamin A (Vitamin A & D Oint Ud Foilpak) 1 ea EXT Q8 PRN PRN Reason: Itching / Pruritus Last Admin: 03/12/18 20:47 Dose: 1 ea - Labs Labs: 03/13/18 07:34 03/13/18 07:34 Attending/Attestation - Attestation I have personally seen and examined this patient.: Yes I have fully participated in the care of the patient.: Yes I have reviewed all pertinent clinical information, including history, physical exam and plan: Yes Notes (Text): 03/13/18 17:56 Medical attending: Patient was seen and examined by me. Agree with the above note by the resident The patient was not in any acute distress when we came and saw him - he was however reporting mild tenderness of the mid epigastric area. As repoted before he is currently being treated with IV abx for a salmonella + in blood culture This morning he reported he still has diarrhea that is described as loose and watery. He denied seeing blood in the stool Laci Haas
[2018-03-13 07:42] LABS: BASO % 0.4 % (0.0-2.0); EOS # 0.1 K/uL (0.0-0.7); EOS % 1.2 % (0.0-4.0); HEMOGLOBIN 14.6 g/dL (12.0-18.0); LYMPH # 1.5 K/uL (1.0-4.3); LYMPH % 21.4 % (20.0-40.0); MEAN CELL VOLUME 90.7 fL (80.0-94.0); MEAN CORPUSCULAR HEMOGLOBIN 31.7 pg (27.0-31.0); MEAN CORPUSCULAR HGB CONC 34.9 g/dL (33.0-37.0); MEAN PLATELET VOLUME 6.4 fL (7.2-11.7); MONO # 0.8 K/uL (0.0-0.8); MONO % 11.6 % (0.0-10.0); NEUT # 4.5 K/uL (1.8-7.0); NEUT % 65.4 % (50.0-75.0); RBC 4.62 Mil/uL (4.40-5.90); WHITE BLOOD COUNT 6.9 K/uL (4.8-10.8)
[2018-03-13 08:27] LABS: ALB/GLOB RATIO 1.2 (1.0-2.1); ALT/SGPT 31 U/L (21-72); AST/SGOT 30 U/L (17-59); BLOOD UREA NITROGEN 15 mg/dL (9-20); GFR NON-AFRICAN AMERICAN > 60
[2018-03-13] MEDS: Lactobacillus Acidophilus 500 MU Cap PO SCH ×2 (10:57→17:41)
--- NOTE | 2018-03-13 13:28 | CP.PCM.PN ---
Subjective - Date & Time of Evaluation Date of Evaluation: 03/13/18 Time of Evaluation: 07:00 - Subjective Subjective: c/o LBM repeat blood c/s neg await stool c/s will add HIV serology Objective - Vital Signs/Intake and Output Vital Signs (last 24 hours): Temp Pulse Resp BP Pulse Ox 98.7 F 83 20 109/65 94 L 03/13/18 07:12 03/13/18 07:12 03/13/18 07:12 03/13/18 07:12 03/13/18 07:12 - Medications Medications: Current Medications Acetaminophen (Tylenol 325mg Tab) 650 mg PO Q6 PRN PRN Reason: Headache Last Admin: 03/12/18 20:46 Dose: 650 mg Ciprofloxacin (Cipro 400mg/200ml Dsw) 400 mg in 200 mls @ 133 mls/hr IVPB Q12H [facility]; Protocol Last Admin: 03/13/18 10:58 Dose: 133 mls/hr Influenza Virus Vaccine (Fluzone Quad [id number]) 60 mcg IM .ONCE ONE Stop: 03/14/18 10:01 Lactobacillus Acidophilus (Bacid Acidophilus) 1 cap PO BID [facility] Last Admin: 03/13/18 10:57 Dose: 1 cap Ondansetron HCl (Zofran Inj) 4 mg IVP Q6 PRN PRN Reason: Nausea/Vomiting Pneumococcal Polyvalent Vaccine (Pneumovax 23 Vaccine) 0.5 ml IM .ONCE ONE Stop: 03/14/18 10:01 Vitamin A (Vitamin A & D Oint Ud Foilpak) 1 ea EXT Q8 PRN PRN Reason: Itching / Pruritus Last Admin: 03/12/18 20:47 Dose: 1 ea - Labs Labs: 03/13/18 07:34 03/13/18 07:34 Assessment and Plan (1) Viral syndrome Status: Acute
[2018-03-13] MEDS: Sodium Chloride 0.9% 1,000 ML IV SCH ×2 (14:45→21:43)
[2018-03-14] MEDS: Sodium Chloride 0.9% 1,000 ML IV SCH ×5 (03:31→22:50)
[2018-03-14 07:45] LABS: BASO % 0.4 % (0.0-2.0); EOS # 0.1 K/uL (0.0-0.7); EOS % 0.9 % (0.0-4.0); LYMPH # 1.9 K/uL (1.0-4.3); LYMPH % 26.5 % (20.0-40.0); MEAN CELL VOLUME 90.1 fL (80.0-94.0); MEAN CORPUSCULAR HEMOGLOBIN 32.3 pg (27.0-31.0); MEAN CORPUSCULAR HGB CONC 35.8 g/dL (33.0-37.0); MEAN PLATELET VOLUME 6.1 fL (7.2-11.7); MONO # 0.8 K/uL (0.0-0.8); MONO % 11.2 % (0.0-10.0); NEUT # 4.3 K/uL (1.8-7.0); NRBC % 0.1 % (0.0-2.0); RBC 4.35 Mil/uL (4.40-5.90); RED CELL DISTRIBUTION WIDTH 12.1 % (11.5-14.5); WHITE BLOOD COUNT 7.1 K/uL (4.8-10.8)
[2018-03-14 07:49] LABS: ALB/GLOB RATIO 1.1 (1.0-2.1); ALBUMIN 3.7 g/dL (3.5-5.0); ALT/SGPT 34 U/L (21-72); AST/SGOT 29 U/L (17-59); BLOOD UREA NITROGEN 13 mg/dL (9-20); CALCIUM 8.5 mg/dl (8.6-10.4); GFR NON-AFRICAN AMERICAN > 60
--- NOTE | 2018-03-14 09:32 | CP.PCM.PN ---
<Miguel Casanova - Last Filed: 03/14/18 12:58> Subjective - Date & Time of Evaluation Date of Evaluation: 03/14/18 Time of Evaluation: 09:30 - Subjective Subjective: PGY-1 Medicine progress note for Dr. Haas Patient seen and examined at bedside. No acute events overnight. Patient did not have a bowel movement yet. He denies fevers, chills, shortness of breath, chest pain, nausea, vomiting, or blood in stool. Objective - Vital Signs/Intake and Output Vital Signs (last 24 hours): Temp Pulse Resp BP Pulse Ox 98.3 F 76 20 117/72 100 03/14/18 07:10 03/14/18 07:10 03/14/18 07:10 03/14/18 07:10 03/14/18 07:10 Intake and Output: 03/14/18 03/14/18 06:59 18:59 Intake Total 1200 Balance 1200 - Medications Medications: Current Medications Acetaminophen (Tylenol 325mg Tab) 650 mg PO Q6 PRN PRN Reason: Headache Last Admin: 03/12/18 20:46 Dose: 650 mg Ciprofloxacin (Cipro 400mg/200ml Dsw) 400 mg in 200 mls @ 133 mls/hr IVPB Q12H JODIE; Protocol Last Admin: 03/13/18 23:17 Dose: 133 mls/hr Sodium Chloride (Sodium Chloride 0.9%) 1,000 mls @ 150 mls/hr IV .Q6H40M JODIE Last Admin: 03/14/18 05:32 Dose: 150 mls/hr Influenza Virus Vaccine (Fluzone Quad [id number]) 60 mcg IM .ONCE ONE Stop: 03/14/18 10:01 Lactobacillus Acidophilus (Bacid Acidophilus) 1 cap PO BID JODIE Last Admin: 03/13/18 17:41 Dose: 1 cap Ondansetron HCl (Zofran Inj) 4 mg IVP Q6 PRN PRN Reason: Nausea/Vomiting Pneumococcal Polyvalent Vaccine (Pneumovax 23 Vaccine) 0.5 ml IM .ONCE ONE Stop: 03/14/18 10:01 Vitamin A (Vitamin A & D Oint Ud Foilpak) 1 ea EXT Q8 PRN PRN Reason: Itching / Pruritus Last Admin: 03/12/18 20:47 Dose: 1 ea - Labs Labs: 03/14/18 07:23 03/14/18 07:23 - Additional Findings Additional findings: - Constitutional Appears: Well, Non-toxic, No Acute Distress - Head Exam Head Exam: ATRAUMATIC, NORMOCEPHALIC - Eye Exam Eye Exam: EOMI, Normal appearance, PERRL - ENT Exam ENT Exam: Mucous Membranes Moist - Neck Exam Neck exam: Positive for: Full Rom, Normal Inspection. Negative for: Lymphadenopathy, Tenderness - Respiratory Exam Respiratory Exam: Clear to Auscultation Bilateral, NORMAL BREATHING PATTERN. absent: Rales, Rhonchi, Wheezes, Respiratory Distress - Cardiovascular Exam Cardiovascular Exam: REGULAR RHYTHM, +S1. absent: Gallop, Rubs, +S2, Systolic Murmur - GI/Abdominal Exam GI & Abdominal Exam: No tenderness. Normal Bowel Sounds, Soft. absent: Distended, Firm - Extremities Exam Extremities exam: Positive for: normal inspection. Negative for: pedal edema - Neurological Exam Neurological exam: Alert, CN II-XII Intact, Oriented x3 - Psychiatric Exam Psychiatric exam: Normal Affect, Normal Mood - Skin Skin Exam: Normal Color Assessment and Plan - Assessment and Plan (Free Text) Assessment: 27 yo M with [facility] testicular cancer s/p orchiectomy and chemo in 2012, admitted for bacteremia. Plan: Bacteremia: - Blood culture (03/10): Salmonella group B - Repeat blood culture (02/08): Salmonella group B - Stool culture (03/12): no salmonella, shigella, or campylobacter isolated - Ciprofloxacin 400mg IV Q12 (started on 03/12) - UCx: negative - UA: negative - Influenza A/B: negative - HIV: negative - CXR (03/11): no active disease - ID consulted, Dr. Florence Testicular Cancer: - S/p orchiectomy and chemo in 2012 - Encourage outpatient follow up with oncology PPX DVT: SCDs HHD Patient seen with and case discussed with Dr. Samina Casanova, PGY-1 <Laci Haas - Last Filed: 03/14/18 15:00> Objective - Vital Signs/Intake and Output Vital Signs (last 24 hours): Temp Pulse Resp BP Pulse Ox 98.3 F 76 20 117/72 100 03/14/18 07:10 03/14/18 07:10 03/14/18 07:10 03/14/18 07:10 03/14/18 07:10 Intake and Output: 03/14/18 03/14/18 06:59 18:59 Intake Total 1200 Balance 1200 - Medications Medications: Current Medications Acetaminophen (Tylenol 325mg Tab) 650 mg PO Q6 PRN PRN Reason: Headache Last Admin: 03/12/18 20:46 Dose: 650 mg Ciprofloxacin (Cipro 400mg/200ml Dsw) 400 mg in 200 mls @ 133 mls/hr IVPB Q12H JODIE; Protocol Last Admin: 03/14/18 11:51 Dose: 133 mls/hr Sodium Chloride (Sodium Chloride 0.9%) 1,000 mls @ 150 mls/hr IV .Q6H40M JODIE Last Admin: 03/14/18 11:15 Dose: Not Given Lactobacillus Acidophilus (Bacid Acidophilus) 1 cap PO BID JODIE Last Admin: 03/14/18 09:53 Dose: 1 cap Ondansetron HCl (Zofran Inj) 4 mg IVP Q6 PRN PRN Reason: Nausea/Vomiting Vitamin A (Vitamin A & D Oint Ud Foilpak) 1 ea EXT Q8 PRN PRN Reason: Itching / Pruritus Last Admin: 03/12/18 20:47 Dose: 1 ea - Labs Labs: 03/14/18 07:23 03/14/18 07:23 Attending/Attestation - Attestation I have personally seen and examined this patient.: Yes I have fully participated in the care of the patient.: Yes I have reviewed all pertinent clinical information, including history, physical exam and plan: Yes Notes (Text): 03/14/18 14:58 Medical attending : Patient was seen and examined by me with the medical librarian. I reviewed the above note by medical librarian the above. The patient reported that he had less abdominal pain today. He was tolerating his diet. The repeated blood cultures that were done showing that it is still growing out gram-negative preliminary as of this morning and by later on in the afternoon as reported that he is still growing out Salmonella on the blood culture It is sensitive to this IV Cipro, he still needs to be on contact precautions Laci Haas
[2018-03-14] MEDS: Lactobacillus Acidophilus 500 MU Cap PO SCH ×2 (09:53→17:43)
[2018-03-14] MEDS ORDERED: Pneumococcal 23-Valent Vaccine IM ONE (10:00)
[2018-03-14] MEDS ORDERED: Influenza Vaccine 60 MCG/0.5 ML SYR (3 yr & up) IM ONE (10:00)
[2018-03-14] MEDS: Ciprofloxacin 400mg/200ml D5W 400 MG/200 ML BAG IVPB SCH ×2 (11:51→22:47)
--- NOTE | 2018-03-14 17:58 | CP.PCM.PN ---
Subjective - Date & Time of Evaluation Date of Evaluation: 03/14/18 Time of Evaluation: 07:00 - Subjective Subjective: grp B salmonella + on blood c/s await repeat cultures on antibiotics Objective - Vital Signs/Intake and Output Vital Signs (last 24 hours): Temp Pulse Resp BP Pulse Ox 100.1 F H 77 20 105/61 100 03/14/18 16:19 03/14/18 16:00 03/14/18 16:00 03/14/18 16:00 03/14/18 16:00 Intake and Output: 03/14/18 03/14/18 06:59 18:59 Intake Total 1200 Balance 1200 - Medications Medications: Current Medications Acetaminophen (Tylenol 325mg Tab) 650 mg PO Q6 PRN PRN Reason: Headache Last Admin: 03/14/18 16:19 Dose: 650 mg Ciprofloxacin (Cipro 400mg/200ml Dsw) 400 mg in 200 mls @ 133 mls/hr IVPB Q12H JODIE; Protocol Last Admin: 03/14/18 11:51 Dose: 133 mls/hr Sodium Chloride (Sodium Chloride 0.9%) 1,000 mls @ 150 mls/hr IV .Q6H40M JODIE Last Admin: 03/14/18 17:44 Dose: 150 mls/hr Lactobacillus Acidophilus (Bacid Acidophilus) 1 cap PO BID JODIE Last Admin: 03/14/18 17:43 Dose: 1 cap Ondansetron HCl (Zofran Inj) 4 mg IVP Q6 PRN PRN Reason: Nausea/Vomiting Vitamin A (Vitamin A & D Oint Ud Foilpak) 1 ea EXT Q8 PRN PRN Reason: Itching / Pruritus Last Admin: 03/12/18 20:47 Dose: 1 ea - Labs Labs: 03/14/18 07:23 03/14/18 07:23 - Constitutional Appears: Non-toxic, Chronically Ill - Head Exam Head Exam: NORMOCEPHALIC - Eye Exam Eye Exam: absent: Scleral icterus - ENT Exam ENT Exam: Mucous Membranes Dry - Neck Exam Neck Exam: absent: Lymphadenopathy - Respiratory Exam Respiratory Exam: Decreased Breath Sounds - Cardiovascular Exam Cardiovascular Exam: REGULAR RHYTHM - GI/Abdominal Exam GI & Abdominal Exam: Distended - Rectal Exam Rectal Exam: Deferred Assessment and Plan (1) Viral syndrome Status: Acute - Assessment and Plan (Free Text) Plan: cont IV then PO cipro for 14 days
[2018-03-15] MEDS: Sodium Chloride 0.9% 1,000 ML IV SCH ×2 (06:59→19:57)
[2018-03-15] MEDS ORDERED: Sodium Chloride 0.9% 1,000 ML IV ONE ×2 (07:58→08:05)
[2018-03-15 08:11] LABS: BASO % 0.1 % (0.0-2.0); EOS % 0.2 % (0.0-4.0); HEMOGLOBIN 13.4 g/dL (12.0-18.0); LYMPH # 1.4 K/uL (1.0-4.3); LYMPH % 13.6 % (20.0-40.0); MEAN CELL VOLUME 90.6 fL (80.0-94.0); MEAN CORPUSCULAR HGB CONC 35.4 g/dL (33.0-37.0); MEAN PLATELET VOLUME 6.1 fL (7.2-11.7); MONO # 0.9 K/uL (0.0-0.8); MONO % 8.7 % (0.0-10.0); NEUT # 7.9 K/uL (1.8-7.0); NEUT % 77.4 % (50.0-75.0); RBC 4.17 Mil/uL (4.40-5.90); RED CELL DISTRIBUTION WIDTH 12.1 % (11.5-14.5); WHITE BLOOD COUNT 10.3 K/uL (4.8-10.8)
[2018-03-15 08:47] LABS: ALB/GLOB RATIO 1.3 (1.0-2.1); ALBUMIN 3.8 g/dL (3.5-5.0); ALT/SGPT 33 U/L (21-72); AST/SGOT 24 U/L (17-59); BLOOD UREA NITROGEN 9 mg/dL (9-20); CALCIUM 8.5 mg/dl (8.6-10.4); GFR NON-AFRICAN AMERICAN > 60
[2018-03-15 08:52] LABS: ABG ALLEN TEST POS; ARTERIAL BLOOD GAS HCO3 22.4 mmol/L (21-28); ARTERIAL BLOOD GAS O2 SAT 97.4 % (95-98); ARTERIAL BLOOD GAS PCO2 30 mm/Hg (35-45); ARTERIAL BLOOD GAS PH 7.43 (7.35-7.45); ARTERIAL BLOOD GAS PO2 120 mm/Hg (80-100); ARTERIAL BLOOD GAS TCO2 20.8 mmol/L (22-28)
--- NOTE | 2018-03-15 09:20 | RAD ---
Date of service: 03/15/2018 HISTORY: Rule out pneumonia COMPARISON: Comparison chest 03/08/2011. FINDINGS: LUNGS: No active pulmonary disease. PLEURA: No significant pleural effusion identified, no pneumothorax apparent. CARDIOVASCULAR: No aortic atherosclerotic calcification present. Normal cardiac size. No pulmonary vascular congestion. OSSEOUS STRUCTURES: No significant abnormalities. VISUALIZED UPPER ABDOMEN: Normal. OTHER FINDINGS: None. IMPRESSION: No active disease.
[2018-03-15] MEDS: Lactobacillus Acidophilus 500 MU Cap PO SCH ×2 (10:29→17:45)
[2018-03-15] MEDS: Ciprofloxacin 400mg/200ml D5W 400 MG/200 ML BAG IVPB SCH ×2 (10:32→22:47)
--- NOTE | 2018-03-15 13:19 | CP.PCM.PN ---
<Lyubov Posada - Last Filed: 03/15/18 15:35> Subjective - Date & Time of Evaluation Date of Evaluation: 03/15/18 Time of Evaluation: 13:19 - Subjective Subjective: Medicine Dr. Haas's Service Patient seen and examined at bedside this morning. Overnight fever 102.4F. Patient states he has been having chills, abdominal pain, and headache. He denies cough, chest pain, SOB, nausea, vomiting. Patient has not had a BM for 23 hours, so diarrhea previously has stopped. Patient states he has been urinating asymptomatically. Objective - Vital Signs/Intake and Output Vital Signs (last 24 hours): Temp Pulse Resp BP Pulse Ox 101.3 F H 100 H 20 119/65 100 03/15/18 13:00 03/15/18 12:53 03/15/18 12:53 03/15/18 12:53 03/15/18 12:53 Intake and Output: 03/15/18 03/15/18 06:59 18:59 Intake Total 1900 Balance 1900 - Medications Medications: Current Medications Acetaminophen (Tylenol 325mg Tab) 650 mg PO Q6 PRN PRN Reason: Headache Last Admin: 03/15/18 13:00 Dose: 650 mg Ciprofloxacin (Cipro 400mg/200ml Dsw) 400 mg in 200 mls @ 133 mls/hr IVPB Q12H [facility]; Protocol Last Admin: 03/15/18 10:32 Dose: 133 mls/hr Sodium Chloride (Sodium Chloride 0.9%) 1,000 mls @ 150 mls/hr IV .Q6H40M JODIE Last Admin: 03/15/18 06:59 Dose: 150 mls/hr Lactobacillus Acidophilus (Bacid Acidophilus) 1 cap PO BID JODIE Last Admin: 03/15/18 10:29 Dose: 1 cap Ondansetron HCl (Zofran Inj) 4 mg IVP Q6 PRN PRN Reason: Nausea/Vomiting Vitamin A (Vitamin A & D Oint Ud Foilpak) 1 ea EXT Q8 PRN PRN Reason: Itching / Pruritus Last Admin: 03/12/18 20:47 Dose: 1 ea - Labs Labs: 03/15/18 07:57 03/15/18 07:57 - Constitutional Appears: Well, In Acute Distress (Young male shivering in bed with many blankets and in position) - Eye Exam Eye Exam: EOMI, Normal appearance - Neck Exam Neck Exam: Normal Inspection - Respiratory Exam Respiratory Exam: Clear to Ausculation Bilateral, NORMAL BREATHING PATTERN - Cardiovascular Exam Cardiovascular Exam: REGULAR RHYTHM - GI/Abdominal Exam GI & Abdominal Exam: Soft, Tenderness, Normal Bowel Sounds Additional comments: LUQ tender to palpation - Extremities Exam Extremities Exam: Normal Capillary Refill, Normal Inspection. absent: Calf Tenderness, Joint Swelling, Tenderness - Back Exam Back Exam: NORMAL INSPECTION - Neurological Exam Neurological Exam: Alert, Awake, Normal Gait, Oriented x3 - Psychiatric Exam Psychiatric exam: Agitated - Skin Skin Exam: Dry, Intact, Normal Color, Warm Assessment and Plan - Assessment and Plan (Free Text) Assessment: 27 yo M with PMH testicular cancer on remission, admitted for bacteremia. Bacteremia Patient met criteria for code sepsis today, however EMERGENCY MEDICINE NURSE PRACTITIONER was called. See EMERGENCY MEDICINE NURSE PRACTITIONER note for more details. - Blood culture (03/10 and repeat 03/11): Salmonella group B - pending another repeat blood culture - Stool culture (03/12): no salmonella, shigella, or campylobacter isolated - Ciprofloxacin 400mg IV Q12 (started on 03/12) - appropriate sensitivity for salmonella - UCx and UA negative - HIV and influenza A/B negative - CXR (03/11): no active disease -> repeat portable 03/15 also negative - ID consulted, Dr. Florence Testicular Cancer - on remission - on remission per patient - S/p orchiectomy and chemo in 2012 - Encourage outpatient follow up with oncology PPX DVT: SCDs GI: not indicated case discussed with Dr. Samina Posada DO PGY1 <Laci Haas H - Last Filed: 03/15/18 16:22> Objective - Vital Signs/Intake and Output Vital Signs (last 24 hours): Temp Pulse Resp BP Pulse Ox 98.7 F 100 H 20 103/66 96 03/15/18 16:14 03/15/18 16:14 03/15/18 16:14 03/15/18 16:14 03/15/18 16:14 Intake and Output: 03/15/18 03/15/18 06:59 18:59 Intake Total 4800 Output Total 2200 Balance 2600 - Medications Medications: Current Medications Acetaminophen (Tylenol 325mg Tab) 650 mg PO Q6 PRN PRN Reason: Headache Last Admin: 03/15/18 13:00 Dose: 650 mg Ciprofloxacin (Cipro 400mg/200ml Dsw) 400 mg in 200 mls @ 133 mls/hr IVPB Q12H JODIE; Protocol Last Admin: 03/15/18 10:32 Dose: 133 mls/hr Sodium Chloride (Sodium Chloride 0.9%) 1,000 mls @ 150 mls/hr IV .Q6H40M JODIE Last Admin: 03/15/18 06:59 Dose: 150 mls/hr Lactobacillus Acidophilus (Bacid Acidophilus) 1 cap PO BID JODIE Last Admin: 03/15/18 10:29 Dose: 1 cap Ondansetron HCl (Zofran Inj) 4 mg IVP Q6 PRN PRN Reason: Nausea/Vomiting Vitamin A (Vitamin A & D Oint Ud Foilpak) 1 ea EXT Q8 PRN PRN Reason: Itching / Pruritus Last Admin: 03/12/18 20:47 Dose: 1 ea - Labs Labs: 03/15/18 07:57 03/15/18 07:57 Attending/Attestation - Attestation I have personally seen and examined this patient.: Yes I have fully participated in the care of the patient.: Yes I have reviewed all pertinent clinical information, including history, physical exam and plan: Yes Notes (Text): 03/15/18 16:21 Medical attending: Reviewed the above note by the resident. Patient was seen and examined by me during the EMERGENCY MEDICINE NURSE PRACTITIONER. We then saw the patient again during our medical rounds. Family member present as well. Blood pressure had improved As mentioned previously there were some lower BP readings and the patient was given IV bolus as well as starting urinary condemn catheter for collection for the I and Os. An ABG shock panel was done and the lactic was stable. While there a portable CXRAY was done as well. We redrew lab work and cultures as well as a procalcitonin Patient was crying. Later on we came back during round and his BP was better. He remains on the IV cipro for the + salmonella infection Laci Haas
--- NOTE | 2018-03-15 13:21 | PCM.RRT ---
<Lyubov Posada - Last Filed: 03/15/18 15:23> [employer] Nurses Assessment - Situation Date: 03/15/18 Time [employer] was called: 07:59 [employer] Responder Arrival Time:: 08:00 [employer] Location:: Med/Surg Room Number: 554 P [employer] Reason for Call: Tachycardia, Hypotension [employer] Called By: RN - IV IV Inserted during [employer]?: No IV Fluids Initiated During [employer]?: Sodium Chloride 0.9% New IV Insertion Tolerance: Good - Respiratory [employer] Delivery Method: Nasal Cannula @L/min Oxygen Flow Rate: 2 Received Nebulizer Treatments: No Was the Patient Ventilated with Bag/Mask 100% O2?: No Secretions Suctioned?: No Was the Patient Intubated?: No Was the Patient Placed on a Ventilator?: No - Diagnostic Test Ordered EKG: No Chest X-Ray: Yes (no acute findings) CT Scan: No Other Diagnostic Test Ordered: ECHO - Stat Labs Ordered [employer] Stat Labs Ordered: CBC, BMP, LACTIC ACID, BLOOD C&S X2, ABG CPR started during [employer]?: No - Vital Signs Vital Signs: Rapid Response Vital Sign Blood Pressure 93/49 Pulse Rate 110 Respiratory Rate 18 Temperature 103 F Oxygen Saturation 95 - Gideon Coma Scale Coma Scale Eye Opening: Spontaneous Coma Scale Motor: Obeys Commands Movement Coma Scale Verbal: Oriented Coma Scale Total: 15 - Sepsis Screen Part 1 Sepsis Screen Part 1: Hypotensive, Temperature over 100.6F - Time [employer] Ended Time [employer] Ended: 08:15 - Vital Signs at end of [employer] Vital Signs at end of [employer]: Rapid Response End Vital Sign Blood Pressure 125/77 Pulse Rate 117 Respiratory Rate 18 Temperature 103 F O2 Sat by Pulse Oximetry 98 - Recommendations 5) [employer] Level of Care Recommendations: Remain in current setting Notifications: Attending Physician - Neurological Status (Select all that apply): Alert, Responsive, Oriented - Respiratory Oxygen Delivery Method: Nasal Cannula @L/min Oxygen Flow Rate: 2 - Constitutional Appears: Well, Non-toxic - Head Head Exam: ATRAUMATIC, NORMAL INSPECTION - Eyes Eye Exam: EOMI, Normal appearance - Respiratory Exam Respiratory Exam: Clear to Ausculation Bilateral, NORMAL BREATHING PATTERN - Cardiovascular Exam Cardiovascular Exam: REGULAR RHYTHM - GI/Abdominal Exam GI & Abdominal Exam: Soft, Normal Bowel Sounds - Neurological Exam Neurological Exam: Alert, Awake, Oriented x3 - Extremities Exam Extremities Exam: Normal Capillary Refill, Normal Inspection Plan - Assessment of Findings&Treatment Plan 28 y/o male with salmonella bacteremia with code sepsis. Sepsis 2/2 bacteremia hypotension 89/47 and 93/49 (R and L arm respectively), fever 103F, and tachycardia HR 107-110 prior to overhead call at 0800 on 03/15/18 -2L IV NS given -pending third bcx - previously positive for salmonella -CXR portable -ECHO - suspicion for endocarditis -ABG -lactate -tylenol -ice packs -NC oxygen After intervention, patient's VS stabilized. No need for ICU consult at the moment. Will continue to monitor. Case d/w Dr. Samina Mcarthur Law DO PGY1 <Laci Haas - Last Filed: 03/15/18 16:21> [employer] Nurses Assessment - Vital Signs Vital Signs: Rapid Response Vital Sign Blood Pressure 93/49 Pulse Rate 110 Respiratory Rate 18 Temperature 103 F Oxygen Saturation 95 - Vital Signs at end of [employer] Vital Signs at end of [employer]: Rapid Response End Vital Sign Blood Pressure 125/77 Pulse Rate 117 Respiratory Rate 18 Temperature 103 F O2 Sat by Pulse Oximetry 98 Attending/Attestation - Attestation I have personally seen and examined this patient.: Yes I have fully participated in the care of the patient.: Yes I have reviewed all pertinent clinical information, including history, physical exam and plan: Yes Notes (Text): 03/15/18 16:15 Medical attending: Patient was seen and examined by me during the [employer]. There were some lower BP readings and the patient was given IV bolus as well as starting urinary condemn catheter for collection for the I and Os. An ABG shock panel was done and the lactic was stable. While there a portable CXRAY was done as well. We redrew lab work and cultures as well as a procalcitonin Patient was crying. Later on we came back during round and his BP was better. He remains on the IV cipro for the + salmonella infection Laci Haas
--- NOTE | 2018-03-15 14:10 | CARD ---
APPROVED REPORT Date of service: 03/15/2018 EXAM: Two-dimensional and M-mode echocardiogram with Doppler and color Doppler. 2D DIMENSIONS IVSd0.8 (0.7-1.1cm)LVDd4.6 (3.9-5.9cm) PWd0.9 (0.7-1.1cm)LA [id number] (18-58mL) LVDs2.5 (2.5-4.0cm)FS (%) 44.9 % LVEF (%)76.2 (>50%)LVEF (Chavez's)67.79 % Mitral Valve MV E Gwpmezuu69.7cm/sMV A Sdnkkqob92.8cm/sE/A ratio1.5 TDI Lateral E' Peak V13.63cm/sMedial E' Peak V16.30cm/sE/Lateral E'7.2 E/Medial E'6.0 Tricuspid Valve TR Peak Xicwtjeu080ac/sTR Peak Gr.[id number] LEFT VENTRICLE The left ventricle is normal size. There is normal left ventricular wall thickness. The left ventricular function is normal. The left ventricular ejection fraction is within the normal range. No regional wall motion abnormalities noted. The left ventricular diastolic function is normal. No left ventricle thrombus noted on this study. There is no ventricular septal defect visualized. There is no left ventricular aneurysm. There is no mass noted in the left ventricle. RIGHT VENTRICLE The right ventricle is normal size. There is normal right ventricular wall thickness. The right ventricular systolic function is normal. ATRIA The left atrium size is normal. The right atrium size is normal. The interatrial septum is intact with no evidence for an atrial septal defect. AORTIC VALVE The aortic valve is normal in structure and function. No aortic regurgitation is present. There is no aortic valvular stenosis. There is no aortic valvular vegetation. MITRAL VALVE The mitral valve is normal in structure and function. There is no evidence of mitral valve prolapse. There is no mitral valve stenosis. There is no mitral valve regurgitation noted. TRICUSPID VALVE The tricuspid valve is normal in structure and function. There is no tricuspid valve regurgitation noted. There is no tricuspid valve prolapse or vegetation. There is no tricuspid valve stenosis. PULMONIC VALVE The pulmonary valve is normal in structure and function. There is no pulmonic valvular regurgitation. There is no pulmonic valvular stenosis. GREAT VESSELS The aortic root is normal in size. The ascending aorta is normal in size. The pulmonary artery is normal. The IVC is normal in size and collapses >50% with inspiration. PERICARDIAL EFFUSION The pericardium appears normal. There is no pleural effusion. <Conclusion> The left ventricular function is normal. The left ventricular ejection fraction is within the normal range. No regional wall motion abnormalities noted. The aortic valve is normal in structure and function. The mitral valve is normal in structure and function.
--- NOTE | 2018-03-15 22:24 | CP.PCM.PCO ---
Physician Communication Note - Physician Communication Note Physician Communication Note: Please see above
[2018-03-16] MEDS: Sodium Chloride 0.9% 1,000 ML IV SCH (03:08)
[2018-03-16 04:25] LABS: BASO % 0.3 % (0.0-2.0); HEMOGLOBIN 12.6 g/dL (12.0-18.0); LYMPH # 2.3 K/uL (1.0-4.3); LYMPH % 12.8 % (20.0-40.0); MEAN CELL VOLUME 89.9 fL (80.0-94.0); MEAN CORPUSCULAR HEMOGLOBIN 31.5 pg (27.0-31.0); MEAN CORPUSCULAR HGB CONC 35.1 g/dL (33.0-37.0); MEAN PLATELET VOLUME 5.9 fL (7.2-11.7); MONO # 1.6 K/uL (0.0-0.8); MONO % 8.9 % (0.0-10.0); RBC 3.99 Mil/uL (4.40-5.90); WHITE BLOOD COUNT 17.9 K/uL (4.8-10.8)
[2018-03-16 04:43] LABS: ALB/GLOB RATIO 1.1 (1.0-2.1); ALBUMIN 3.3 g/dL (3.5-5.0); ALT/SGPT 33 U/L (21-72); AST/SGOT 19 U/L (17-59); BLOOD UREA NITROGEN 10 mg/dL (9-20); CALCIUM 8.3 mg/dl (8.6-10.4); GFR NON-AFRICAN AMERICAN > 60
[2018-03-16] MEDS ORDERED: Sodium Chloride 0.9% 1,000 ML IV ONE (08:09)
[2018-03-16] MEDS ORDERED: Iodixanol 320 MG/ML 100 ML BOTTLE IV ONE (08:55)
[2018-03-16] MEDS: Lactobacillus Acidophilus 500 MU Cap PO SCH ×2 (09:19→17:33)
[2018-03-16] MEDS: cefTRIAXone 2 GM in Sodium Chloride 0.9% 100 ML IVPB SCH ×2 (10:44→21:19)
--- NOTE | 2018-03-16 11:03 | CT ---
Date of service: 03/16/2018 CT chest, abdomen, and pelvis with IV contrast Indication: abdominal pain Technique: Contiguous axial images of the chest, abdomen, and pelvis. Coronal and Sagittal reformats generated and reviewed. This CT exam was performed using 1 or more of the following dose reduction techniques: Automated exposure control, adjustment of the MAA and/or kV according to patient size, and/or use of iterative reconstruction technique. Contrast: 100 mL Visipaque 320 IV Radiation dose: Total exam DLP = 729.09 MGy-cm. Comparison: Chest x-ray performed 03/15/18 Findings: Visualized portions of the inferior thyroid gland appear unremarkable. The mediastinal and hilar vascular structures appear within normal limits. The heart appears within normal limits of size. No focal consolidation. No pleural effusion. No pneumothorax. 3 mm right lower lobe calcified granuloma. Punctate splenic calcification, likely granuloma. The liver, spleen, pancreas, adrenal glands, and gallbladder appear otherwise unremarkable. The kidneys enhance symmetrically. No hydronephrosis or obstructing calculus identified. Too small to characterize 5 mm left lower pole renal hypodensity, statistically likely cyst or hemangioma. The stomach is nondistended. The bowel loops appear within normal limits of caliber without evidence of intestinal obstruction. There is no definite free air. The appendix appears within normal limits of caliber. No secondary signs of acute appendicitis. The urinary bladder appears unremarkable. The prostate gland measures approximately 2.9 x 3.6 cm. No acute osseous abnormality is detected. Impression: No acute findings. Incidental findings as above.
--- NOTE | 2018-03-16 12:59 | CP.PCM.PN ---
<Miguel Casanova - Last Filed: 03/16/18 16:00> Subjective - Date & Time of Evaluation Date of Evaluation: 03/16/18 Time of Evaluation: 12:59 - Subjective Subjective: PGY-1 Medicine progress note for Dr. Haas Patient seen and examined at bedside. Patient has been having fevers yesterday throughout the day and night, Tmax of 103.0. Patient states he does not have abdominal pain, neck stiffness, or headaches. He further denies having shortness of breath, chest pain, nausea, vomiting, diarrhea, or blood in stool. Objective - Vital Signs/Intake and Output Vital Signs (last 24 hours): Temp Pulse Resp BP Pulse Ox 99.4 F 93 H 20 105/62 97 03/16/18 10:09 03/16/18 12:00 03/16/18 08:10 03/16/18 08:10 03/16/18 08:10 Intake and Output: 03/16/18 03/16/18 06:59 18:59 Intake Total 1200 Output Total 1020 Balance 180 - Medications Medications: Current Medications Acetaminophen (Tylenol 325mg Tab) 650 mg PO Q6 PRN PRN Reason: Headache Last Admin: 03/16/18 08:17 Dose: 650 mg Acetaminophen (Tylenol 325mg Tab) 650 mg PO Q6 JODIE Stop: 03/16/18 23:59 Last Admin: 03/16/18 06:00 Dose: 650 mg Heparin Sodium (Porcine) (Heparin) 5,000 units SC Q8 JODIE Sodium Chloride (Sodium Chloride 0.9%) 1,000 mls @ 150 mls/hr IV .Q6H40M REPLACED BY [facility] Last Admin: 03/16/18 03:08 Dose: 150 mls/hr Ceftriaxone Sodium 2 gm/ (Sodium Chloride) 100 mls @ 100 mls/hr IVPB Q12 JODIE; Protocol Last Admin: 03/16/18 10:44 Dose: 100 mls/hr Lactobacillus Acidophilus (Bacid Acidophilus) 1 cap PO BID JODIE Last Admin: 03/16/18 09:19 Dose: 1 cap Ondansetron HCl (Zofran Inj) 4 mg IVP Q6 PRN PRN Reason: Nausea/Vomiting Vitamin A (Vitamin A & D Oint Ud Foilpak) 1 ea EXT Q8 PRN PRN Reason: Itching / Pruritus Last Admin: 03/12/18 20:47 Dose: 1 ea - Labs Labs: 03/16/18 04:16 03/16/18 04:16 - Additional Findings Additional findings: - Constitutional Appears: Well, Non-toxic, No Acute Distress - Head Exam Head Exam: ATRAUMATIC, NORMOCEPHALIC - Eye Exam Eye Exam: EOMI, Normal appearance, PERRL - ENT Exam ENT Exam: Mucous Membranes Moist - Neck Exam Neck exam: Positive for: Full Rom, Normal Inspection. Negative for: Lymphadenopathy, Tenderness - Respiratory Exam Respiratory Exam: Clear to Auscultation Bilateral, NORMAL BREATHING PATTERN. absent: Rales, Rhonchi, Wheezes, Respiratory Distress - Cardiovascular Exam Cardiovascular Exam: REGULAR RHYTHM, +S1. absent: Gallop, Rubs, +S2, Systolic Murmur - GI/Abdominal Exam GI & Abdominal Exam: No tenderness. Normal Bowel Sounds, Soft. absent: Distended, Firm - Extremities Exam Extremities exam: Positive for: normal inspection. Negative for: pedal edema - Neurological Exam Neurological exam: Alert, CN II-XII Intact, Oriented x3 - Psychiatric Exam Psychiatric exam: Normal Affect, Normal Mood - Skin Skin Exam: Normal Color Assessment and Plan - Assessment and Plan (Free Text) Assessment: 27 yo M with H testicular cancer s/p orchiectomy and chemo in 2012, admitted for bacteremia. Plan: Bacteremia: - Blood culture (03/15): No growth to date - Blood culture (03/10): Salmonella group B - Blood culture (03/11): Salmonella group B - Stool culture (03/12): no salmonella, shigella, or campylobacter isolated - Ciprofloxacin 400mg IV Q12 (started on 03/12) - UCx: negative - UA: negative - Influenza A/B: negative - HIV: negative - FTA-Abs, RPR: f/u - CXR (03/11): no active disease --> repeat portable on 03/15 was also negative - ID consulted, Dr. Florence - Abd/chest/pelvis CT (03/16): No acute findings - Echo (03/15): No acute findings - Head CT: f/u Testicular Cancer: - S/p orchiectomy and chemo in 2012 - Encourage outpatient follow up with oncology PPX DVT: SCDs HHD Patient seen with and case discussed with Dr. Samina Casanova, PGY-1 <Laci Haas H - Last Filed: 03/16/18 18:49> Objective - Vital Signs/Intake and Output Vital Signs (last 24 hours): Temp Pulse Resp BP Pulse Ox 101.9 F H 116 H 20 106/63 100 03/16/18 17:33 03/16/18 16:00 03/16/18 16:00 03/16/18 16:00 03/16/18 16:00 Intake and Output: 03/16/18 03/16/18 06:59 18:59 Intake Total 1200 Output Total 1020 650 Balance 180 -650 - Medications Medications: Current Medications Acetaminophen (Tylenol 325mg Tab) 650 mg PO Q6 PRN PRN Reason: Headache Last Admin: 03/16/18 08:17 Dose: 650 mg Acetaminophen (Tylenol 325mg Tab) 650 mg PO Q6 JODIE Stop: 03/16/18 23:59 Last Admin: 03/16/18 17:33 Dose: 650 mg Heparin Sodium (Porcine) (Heparin) 5,000 units SC Q8 JODIE Last Admin: 03/16/18 13:19 Dose: 5,000 units Sodium Chloride (Sodium Chloride 0.9%) 1,000 mls @ 150 mls/hr IV .Q6H40M JODIE Last Admin: 03/16/18 03:08 Dose: 150 mls/hr Ceftriaxone Sodium 2 gm/ (Sodium Chloride) 100 mls @ 100 mls/hr IVPB Q12 JODIE; Protocol Last Admin: 03/16/18 10:44 Dose: 100 mls/hr Lactobacillus Acidophilus (Bacid Acidophilus) 1 cap PO BID JODIE Last Admin: 03/16/18 17:33 Dose: 1 cap Ondansetron HCl (Zofran Inj) 4 mg IVP Q6 PRN PRN Reason: Nausea/Vomiting Vitamin A (Vitamin A & D Oint Ud Foilpak) 1 ea EXT Q8 PRN PRN Reason: Itching / Pruritus Last Admin: 03/12/18 20:47 Dose: 1 ea - Labs Labs: 03/16/18 04:16 03/16/18 04:16 Attending/Attestation - Attestation I have personally seen and examined this patient.: Yes I have fully participated in the care of the patient.: Yes I have reviewed all pertinent clinical information, including history, physical exam and plan: Yes Notes (Text): 03/16/18 18:49 Medical attending: Patient was seen and examined with the medical residents. He was having hemodialysis when we saw him. I reviewed the above note by medical research associate and agree This morning the patient continues to have fevers overnight. He denied having any abdominal pain or chest pain. He denied shortness of breath as well. He also denied neck pain and denied photophobia he also denied headaches Because of these ongoing fevers we ordered a CT scan of the chest abdomen and pelvis with IV contrast were done due to concern he could've had an abscess somewhere that was the origin for the repeated Salmonella that was seen on his bloodstream blood cultures. The CAT scans of the chest abdomen pelvis were negative. Regarding get a CT scan of the head however he denies having any neck pain or headache. It is possible that his ongoing fevers or simply due to the Salmonella bacteremia that he has. He remains on the IV Cipro. Laci Haas
--- NOTE | 2018-03-16 17:42 | CT ---
Date of service: 03/16/2018 PROCEDURE: CT HEAD WITHOUT CONTRAST. HISTORY: Rule out meningitis or abscess COMPARISON: None available. TECHNIQUE: Axial computed tomography images were obtained through the head/brain without intravenous contrast. Radiation dose: Total exam DLP = 1087.74 mGy-cm. This CT exam was performed using one or more of the following dose reduction techniques: Automated exposure control, adjustment of the mA and/or kV according to patient size, and/or use of iterative reconstruction technique. FINDINGS: HEMORRHAGE: No intracranial hemorrhage. BRAIN: No mass effect or edema. No atrophy or chronic microvascular ischemic changes. VENTRICLES: Unremarkable. No hydrocephalus. CALVARIUM: Unremarkable. PARANASAL SINUSES: Unremarkable as visualized. No significant inflammatory changes. MASTOID AIR CELLS: Unremarkable as visualized. No inflammatory changes. OTHER FINDINGS: None. IMPRESSION: No evidence of acute intracranial hemorrhage mass effect or midline shift. The evaluation for possible meningitis or abscess formation is limited without IV contrast administration. If clinically warranted enhanced CT or MRI is suggested for further evaluation.
--- NOTE | 2018-03-16 19:44 | CP.PCM.PN ---
Subjective - Date & Time of Evaluation Date of Evaluation: 03/16/18 Time of Evaluation: 07:00 - Subjective Subjective: recurrent fevers switched to Rocephin recc: CT Chest abd / pelvis to r/o abscess / pseudoaneurysm if fever persists Objective - Vital Signs/Intake and Output Vital Signs (last 24 hours): Temp Pulse Resp BP Pulse Ox 101.9 F H 116 H 20 106/63 100 03/16/18 17:33 03/16/18 16:00 03/16/18 16:00 03/16/18 16:00 03/16/18 16:00 Intake and Output: 03/16/18 03/17/18 18:59 06:59 Output Total 650 Balance -650 - Medications Medications: Current Medications Acetaminophen (Tylenol 325mg Tab) 650 mg PO Q6 PRN PRN Reason: Headache Last Admin: 03/16/18 08:17 Dose: 650 mg Acetaminophen (Tylenol 325mg Tab) 650 mg PO Q6 JODIE Stop: 03/16/18 23:59 Last Admin: 03/16/18 17:33 Dose: 650 mg Heparin Sodium (Porcine) (Heparin) 5,000 units SC Q8 JODIE Last Admin: 03/16/18 13:19 Dose: 5,000 units Sodium Chloride (Sodium Chloride 0.9%) 1,000 mls @ 150 mls/hr IV .Q6H40M JODIE Last Admin: 03/16/18 03:08 Dose: 150 mls/hr Ceftriaxone Sodium 2 gm/ (Sodium Chloride) 100 mls @ 100 mls/hr IVPB Q12 JODIE; Protocol Last Admin: 03/16/18 10:44 Dose: 100 mls/hr Lactobacillus Acidophilus (Bacid Acidophilus) 1 cap PO BID JODIE Last Admin: 03/16/18 17:33 Dose: 1 cap Ondansetron HCl (Zofran Inj) 4 mg IVP Q6 PRN PRN Reason: Nausea/Vomiting Vitamin A (Vitamin A & D Oint Ud Foilpak) 1 ea EXT Q8 PRN PRN Reason: Itching / Pruritus Last Admin: 03/12/18 20:47 Dose: 1 ea - Labs Labs: 03/16/18 04:16 03/16/18 04:16 - Constitutional Appears: Non-toxic, Chronically Ill - Head Exam Head Exam: NORMOCEPHALIC - Eye Exam Eye Exam: absent: Scleral icterus - ENT Exam ENT Exam: Mucous Membranes Dry - Neck Exam Neck Exam: absent: Lymphadenopathy - Respiratory Exam Respiratory Exam: Decreased Breath Sounds - Cardiovascular Exam Cardiovascular Exam: REGULAR RHYTHM - GI/Abdominal Exam GI & Abdominal Exam: Distended - Rectal Exam Rectal Exam: Deferred Assessment and Plan (1) Viral syndrome Status: Acute (2) Salmonella bacteremia Status: Acute - Assessment and Plan (Free Text) Assessment: recurrent fevers switched to Rocephin recc: CT Chest abd / pelvis to r/o abscess / pseudoaneurysm if fever persists
--- NOTE | 2018-03-16 19:48 | CARD ---
APPROVED REPORT Date of service: 03/15/2018 EKG Measurement Heart [id number] [id number] <Conclusion> Sinus tachycardia with frequent premature ventricular complexes Anteroseptal infarct, possibly acute ACUTE NC / STEMI Abnormal ECG suggest serial ekgs. floor nurse notfied to call pcp shi malik.
[2018-03-17] MEDS: Sodium Chloride 0.9% 1,000 ML IV SCH ×4 (00:36→19:02)
--- NOTE | 2018-03-17 01:26 | CP.PCM.PN ---
<Lyubov Posada - Last Filed: 03/17/18 01:27> Subjective - Date & Time of Evaluation Date of Evaluation: 03/17/18 Time of Evaluation: 01:21 - Subjective Subjective: Medicine Progress Note Patient seen and examined at bedside. He states he feels better than two days ago. He denies subjective fevers, chills, sweats, cough, chest pain, SOB, abdominal pain. Diarrhea has resolved as mentioned also in the last progress note. Objective - Vital Signs/Intake and Output Vital Signs (last 24 hours): Temp Pulse Resp BP Pulse Ox 102.5 F H 108 H 22 101/65 100 03/17/18 00:31 03/17/18 00:00 03/17/18 00:00 03/17/18 00:00 03/17/18 00:00 Intake and Output: 03/16/18 03/17/18 18:59 06:59 Output Total 650 Balance -650 - Medications Medications: Current Medications Acetaminophen (Tylenol 325mg Tab) 650 mg PO Q6 PRN PRN Reason: Headache Last Admin: 03/17/18 00:31 Dose: 650 mg Heparin Sodium (Porcine) (Heparin) 5,000 units SC Q8 JODIE Last Admin: 03/16/18 21:19 Dose: 5,000 units Sodium Chloride (Sodium Chloride 0.9%) 1,000 mls @ 150 mls/hr IV .Q6H40M JODIE Last Admin: 03/17/18 00:36 Dose: 150 mls/hr Ceftriaxone Sodium 2 gm/ (Sodium Chloride) 100 mls @ 100 mls/hr IVPB Q12 JODIE; Protocol Last Admin: 03/16/18 21:19 Dose: 100 mls/hr Lactobacillus Acidophilus (Bacid Acidophilus) 1 cap PO BID JODIE Last Admin: 03/16/18 17:33 Dose: 1 cap Ondansetron HCl (Zofran Inj) 4 mg IVP Q6 PRN PRN Reason: Nausea/Vomiting Vitamin A (Vitamin A & D Oint Ud Foilpak) 1 ea EXT Q8 PRN PRN Reason: Itching / Pruritus Last Admin: 03/12/18 20:47 Dose: 1 ea - Labs Labs: 03/16/18 04:16 03/16/18 04:16 - Head Exam Head Exam: ATRAUMATIC, NORMAL INSPECTION - Eye Exam Eye Exam: EOMI, Normal appearance - Neck Exam Neck Exam: Normal Inspection - Respiratory Exam Respiratory Exam: Clear to Ausculation Bilateral, NORMAL BREATHING PATTERN - Cardiovascular Exam Cardiovascular Exam: Tachycardia, REGULAR RHYTHM - GI/Abdominal Exam GI & Abdominal Exam: Soft, Normal Bowel Sounds. absent: Firm, Guarding, Rigid, Tenderness - Neurological Exam Neurological Exam: Alert, Awake, Oriented x3 - Psychiatric Exam Psychiatric exam: Normal Affect, Normal Mood - Skin Skin Exam: Dry, Intact, Normal Color, Warm Assessment and Plan - Assessment and Plan (Free Text) Assessment: 27 yo M with PMH testicular cancer s/p orchiectomy and chemo in 2012, admitted for bacteremia. Abnormal EKG: -RN notified night float 03/17 that EKG interpreted by Dr. Neal Nichols, cardiology, when patient had chest pain earlier this morning can be consistent with septal DC. -EKG interpretation (from chart, interpreted by night float ): Tachycardia with 110 bpm, PVCs, ST elevations leads V2 and V3. -consulted Dr. Ayala, cardiology, for further recs Bacteremia: - Blood culture (03/15): No growth to date - Blood culture (03/10): Salmonella group B - Blood culture (03/11): Salmonella group B - Stool culture (03/12): no salmonella, shigella, or campylobacter isolated - Ciprofloxacin 400mg IV Q12 (started on 03/12) - UCx: negative - UA: negative - Influenza A/B: negative - HIV: negative - FTA-Abs, RPR: f/u - CXR (03/11): no active disease --> repeat portable on 03/15 was also negative - ID consulted, Dr. Florence - Abd/chest/pelvis CT (03/16): No acute findings - Echo (03/15): No acute findings - Head CT: f/u Testicular Cancer: - S/p orchiectomy and chemo in 2012 - Encourage outpatient follow up with oncology PPX DVT: SCDs GI: not indicated <Laci Haas - Last Filed: 03/17/18 11:23> Objective - Vital Signs/Intake and Output Vital Signs (last 24 hours): Temp Pulse Resp BP Pulse Ox 97.2 F L 81 20 97/62 L 96 03/17/18 08:09 03/17/18 08:17 03/17/18 08:09 03/17/18 08:09 03/17/18 08:09 Intake and Output: 03/17/18 03/17/18 06:59 18:59 Output Total 1200 Balance -1200 - Medications Medications: Current Medications Acetaminophen (Tylenol 325mg Tab) 650 mg PO Q6H [facility] Stop: 03/18/18 06:00 Last Admin: 03/17/18 05:57 Dose: Not Given Heparin Sodium (Porcine) (Heparin) 5,000 units SC Q8 JODIE Last Admin: 03/17/18 05:52 Dose: 5,000 units Sodium Chloride (Sodium Chloride 0.9%) 1,000 mls @ 150 mls/hr IV .Q6H40M JODIE Last Admin: 03/17/18 09:00 Dose: 150 mls/hr Ceftriaxone Sodium 2 gm/ (Sodium Chloride) 100 mls @ 100 mls/hr IVPB Q12 JODIE; Protocol Last Admin: 03/17/18 10:16 Dose: 100 mls/hr Ibuprofen (Motrin Tab) 600 mg PO Q6H JODIE Stop: 03/18/18 03:00 Last Admin: 03/17/18 10:16 Dose: 600 mg Lactobacillus Acidophilus (Bacid Acidophilus) 1 cap PO BID [facility] Last Admin: 03/17/18 10:16 Dose: 1 cap Ondansetron HCl (Zofran Inj) 4 mg IVP Q6 PRN PRN Reason: Nausea/Vomiting Pantoprazole Sodium (Protonix Ec Tab) 40 mg PO DAILY [facility] Last Admin: 03/17/18 03:02 Dose: 40 mg Vitamin A (Vitamin A & D Oint Ud Foilpak) 1 ea EXT Q8 PRN PRN Reason: Itching / Pruritus Last Admin: 03/12/18 20:47 Dose: 1 ea - Labs Labs: 03/17/18 09:15 03/17/18 09:15 Attending/Attestation - Attestation I have personally seen and examined this patient.: Yes I have fully participated in the care of the patient.: Yes I have reviewed all pertinent clinical information, including history, physical exam and plan: Yes Notes (Text): 03/17/18 11:21 Medical attending: Patient was seen and examined by me. Agree with the above note by the resident The patient was not in any acute distress when I came and saw however earlier in the morning they say he had episode of tacycardia. Patient continues to have the fevers as previously mentioned. He has just had CT of head as well. Because of the tachycardia will check troponin as well as CT scan of the chest PE protocol. His echo was normal and did not show vegetations. Laic Haas
--- NOTE | 2018-03-17 02:12 | CP.PCM.PCO ---
Physician Communication Note - Physician Communication Note Physician Communication Note: see above
[2018-03-17] MEDS: Pantoprazole 40 mg EC Tab PO SCH (03:02)
[2018-03-17 09:25] LABS: BASO % 0.1 % (0.0-2.0); EOS # 0.1 K/uL (0.0-0.7); EOS % 0.6 % (0.0-4.0); HEMOGLOBIN 10.9 g/dL (12.0-18.0); LYMPH # 2.2 K/uL (1.0-4.3); LYMPH % 15.1 % (20.0-40.0); MEAN CELL VOLUME 90.1 fL (80.0-94.0); MEAN CORPUSCULAR HEMOGLOBIN 31.1 pg (27.0-31.0); MEAN CORPUSCULAR HGB CONC 34.6 g/dL (33.0-37.0); MEAN PLATELET VOLUME 6.2 fL (7.2-11.7); MONO % 7.2 % (0.0-10.0); NEUT # 11.1 K/uL (1.8-7.0); RBC 3.51 Mil/uL (4.40-5.90); RED CELL DISTRIBUTION WIDTH 12.1 % (11.5-14.5); WHITE BLOOD COUNT 14.4 K/uL (4.8-10.8)
[2018-03-17 09:45] LABS: ALT/SGPT 31 U/L (21-72); AST/SGOT 16 U/L (17-59); BLOOD UREA NITROGEN 8 mg/dL (9-20); CALCIUM 8.1 mg/dl (8.6-10.4); GFR NON-AFRICAN AMERICAN > 60
[2018-03-17] MEDS: Lactobacillus Acidophilus 500 MU Cap PO SCH ×2 (10:16→17:58)
[2018-03-17] MEDS: cefTRIAXone 2 GM in Sodium Chloride 0.9% 100 ML IVPB SCH ×2 (10:16→21:34)
[2018-03-17] MEDS ORDERED: Iodixanol 320 MG/ML 100 ML BOTTLE IV ONE (11:20)
--- NOTE | 2018-03-17 13:11 | CT ---
Date of service: 03/17/2018 PROCEDURE: CT Chest with contrast (Pulmonary Angiogram) HISTORY: Chest pain. Evaluate for pulmonary embolism. COMPARISON: None available. TECHNIQUE: Axial computed tomography images were obtained of the chest in the pulmonary arterial phase of enhancement. Coronal and sagittal reformatted images were created and reviewed. Radiation dose: Total exam DLP = 391.31 mGy-cm. This CT exam was performed using one or more of the following dose reduction techniques: Automated exposure control, adjustment of the mA and/or kV according to patient size, and/or use of iterative reconstruction technique. FINDINGS: PULMONARY ARTERIES: No evidence of acute central pulmonary embolism. Some motion artifact at the segmental and subsegmental levels somewhat limit evaluation. For example a questionable filling defect in a subsegmental branch of the right upper lobe pulmonary artery on series 2, image 3 may be the sequelae of motion. AORTA: No acute findings. No thoracic aortic aneurysm. No aortic atherosclerotic calcification or mural plaque present. No evidence of acute aortic dissection. LUNGS: Right lung: Mild atelectasis along the fissure. 2 millimeter nodule/intra fissural lymph node on series 4, image 52. Atelectasis at the lung bases. 5 millimeter calcified granuloma within the posterior aspect of the right lower lobe. Left lung: Atelectasis at the left lung base. 2 millimeters subpleural nodule along the lateral aspect of the left lower. PLEURAL SPACES: Unremarkable. No effusion or pneumothorax. HEART: Unremarkable. No cardiomegaly. No significant pericardial effusion. LYMPH NODES: No lymphadenopathy. BONES, CHEST WALL: Unremarkable. No fracture or destructive lesion OTHER FINDINGS: Unremarkable. IMPRESSION: 1. No evidence of acute central pulmonary embolism. Some motion artifact at the segmental and subsegmental levels somewhat limit evaluation. For example a questionable filling defect in a subsegmental branch of the right upper lobe pulmonary artery on series 2, image 3 may be the sequelae of motion. 2. Right lung: Mild atelectasis along the fissure. 2 millimeter nodule/intra fissural lymph node on series 4, image 52. Atelectasis at the lung bases. 5 millimeter calcified granuloma within the posterior aspect of the right lower lobe. 3. Left lung: Atelectasis at the left lung base. 2 millimeters subpleural nodule along the lateral aspect of the left lower.
--- NOTE | 2018-03-17 20:45 | CON ---
DATE: 03/17/2018 CARDIOLOGY CONSULTATION REASON FOR CONSULTATION: Abnormal EKG. HISTORY OF PRESENT ILLNESS: The patient is a 27-year-old male, originally from [facility] who lived until almost a year ago in [place] has a history of testicular carcinoma, status post right orchiectomy in 2012 followed by chemotherapy. The patient was admitted because of Salmonella bacteremia. The patient had an abnormal EKG, which was either sinus tachycardia or frequent PVCs, anteroseptal infarct, possibly acute. EKG was suggestive of a Brugada pattern rather than an acute injury pattern, and repeat EKGs following that did not reveal the previously noted ST elevation in V1 and V2. The patient denies any chest pain. He is unaware of any prior cardiac history. REVIEW OF SYSTEMS: The patient complains of abdominal discomfort and diarrhea. MEDICATIONS: Lactobacillus one tablet twice a day, ibuprofen 600 mg every 6 hours, subcutaneous heparin 5000 units every 8 hours, Zofran 4 mg intravenously every 6 hours, and Rocephin 2 g intravenously every 12 hours. PHYSICAL EXAMINATION: GENERAL: The patient is a young middle-aged male who does not appear to be in distress. VITAL SIGNS: Blood pressure 97/64, heart rate 75, temperature 97.2, and respirations 20. HEENT: Pale conjunctivae. CHEST: Clear. HEART: S1 and S2 are regular. ABDOMEN: Soft. EXTREMITIES: No edema. LABORATORY DATA: SMA-7: Sodium 138, potassium 3.9, chloride 109, CO2 of 24, glucose 104, BUN 8, and creatinine 0.6. Three sets of troponins are negative. Hemoglobin and hematocrit 10.9 and 31.6, white count 14.4, and platelet count 196,000. D-dimer is 308. Chest CT angio: No evidence of acute central pulmonary embolism, some motion artifact at segmental and subsegmental levels, somewhat limit evaluation, right lung mid mild atelectasis along the bases, left lung atelectasis at the left lung base. Venous Doppler of lower extremity was performed; the report is still pending. A CT scan without contrast: No evidence of acute intracranial mass effect or midline shift. Chest, abdomen and pelvis CT scan: No acute findings. ASSESSMENT: 1. Abnormal electrocardiogram with Brugada pattern on the first electrocardiogram. 2. Salmonella group B bacteremia. RECOMMENDATIONS: Continue current IV Rocephin and oral lactobacillus. I did review the echocardiographic study. This was performed on 03/15/2018, which revealed normal left ventricular systolic function, normal wall motion, normal ejection fraction and normal aortic and mitral valves, and no further cardiac workup is indicated at this time. The patient may follow up with an program technician after discharge. Trevin Donis MD
[2018-03-18] MEDS: Sodium Chloride 0.9% 1,000 ML IV SCH ×5 (01:59→21:20)
[2018-03-18 07:36] LABS: BASO % 0.4 % (0.0-2.0); EOS # 0.1 K/uL (0.0-0.7); HEMOGLOBIN 10.9 g/dL (12.0-18.0); LYMPH # 1.6 K/uL (1.0-4.3); LYMPH % 17.4 % (20.0-40.0); MEAN CELL VOLUME 89.6 fL (80.0-94.0); MEAN CORPUSCULAR HEMOGLOBIN 31.9 pg (27.0-31.0); MEAN CORPUSCULAR HGB CONC 35.6 g/dL (33.0-37.0); MEAN PLATELET VOLUME 6.4 fL (7.2-11.7); MONO # 0.5 K/uL (0.0-0.8); MONO % 5.6 % (0.0-10.0); NEUT # 7.1 K/uL (1.8-7.0); NEUT % 75.6 % (50.0-75.0); NRBC % 0.1 % (0.0-2.0); RBC 3.42 Mil/uL (4.40-5.90); RED CELL DISTRIBUTION WIDTH 12.3 % (11.5-14.5); WHITE BLOOD COUNT 9.4 K/uL (4.8-10.8)
[2018-03-18 07:56] LABS: ALBUMIN 3.1 g/dL (3.5-5.0); ALT/SGPT 28 U/L (21-72); AST/SGOT 20 U/L (17-59); BLOOD UREA NITROGEN 12 mg/dL (9-20); CALCIUM 8.1 mg/dl (8.6-10.4); GFR NON-AFRICAN AMERICAN > 60
[2018-03-18] MEDS: Lactobacillus Acidophilus 500 MU Cap PO SCH ×2 (09:00→17:12)
[2018-03-18] MEDS: cefTRIAXone 2 GM in Sodium Chloride 0.9% 100 ML IVPB SCH ×2 (09:00→21:23)
[2018-03-18] MEDS: Pantoprazole 40 mg EC Tab PO SCH (09:00)
--- NOTE | 2018-03-18 09:10 | CP.PCM.PN ---
<Lyubov Posada - Last Filed: 03/18/18 09:07> Subjective - Date & Time of Evaluation Date of Evaluation: 03/18/18 Time of Evaluation: 09:07 - Subjective Subjective: Patient seen and examined at bedside this morning. He has no acute complaints. Throughout the night, night float dr was never paged for any of his needs. Patient denies cp, sob, n/v, abdominal pain, diarrhea. Fever and tachycardia has resolved for >24 hours. Objective - Vital Signs/Intake and Output Vital Signs (last 24 hours): Temp Pulse Resp BP Pulse Ox 98.0 F 80 20 114/75 98 03/18/18 06:04 03/18/18 00:16 03/17/18 23:00 03/17/18 23:00 03/17/18 23:00 Intake and Output: 03/18/18 03/18/18 06:59 18:59 Intake Total 1300 Balance 1300 - Medications Medications: Current Medications Heparin Sodium (Porcine) (Heparin) 5,000 units SC Q8 [facility] Last Admin: 03/18/18 06:02 Dose: 5,000 units Sodium Chloride (Sodium Chloride 0.9%) 1,000 mls @ 150 mls/hr IV .Q6H40M [facility] Last Admin: 03/18/18 08:53 Dose: 150 mls/hr Ceftriaxone Sodium 2 gm/ (Sodium Chloride) 100 mls @ 100 mls/hr IVPB Q12 [facility]; Protocol Last Admin: 03/18/18 09:00 Dose: 100 mls/hr Lactobacillus Acidophilus (Bacid Acidophilus) 1 cap PO BID [facility] Last Admin: 03/18/18 09:00 Dose: 1 cap Ondansetron HCl (Zofran Inj) 4 mg IVP Q6 PRN PRN Reason: Nausea/Vomiting Pantoprazole Sodium (Protonix Ec Tab) 40 mg PO DAILY [facility] Last Admin: 03/18/18 09:00 Dose: 40 mg Vitamin A (Vitamin A & D Oint Ud Foilpak) 1 ea EXT Q8 PRN PRN Reason: Itching / Pruritus Last Admin: 03/12/18 20:47 Dose: 1 ea - Labs Labs: 03/18/18 07:23 03/18/18 07:23 - Constitutional Appears: Well, Non-toxic - Eye Exam Eye Exam: EOMI, Normal appearance - Neck Exam Neck Exam: Normal Inspection - Respiratory Exam Respiratory Exam: Clear to Ausculation Bilateral, NORMAL BREATHING PATTERN - Cardiovascular Exam Cardiovascular Exam: REGULAR RHYTHM - GI/Abdominal Exam GI & Abdominal Exam: Soft, Normal Bowel Sounds - Extremities Exam Extremities Exam: Normal Inspection - Neurological Exam Neurological Exam: Alert, Awake, Oriented x3 - Psychiatric Exam Psychiatric exam: Normal Affect, Normal Mood - Skin Skin Exam: Dry, Intact, Normal Color, Warm Assessment and Plan - Assessment and Plan (Free Text) Assessment: 27 yo M with PMH testicular cancer s/p orchiectomy and chemo in 2012, admitted for bacteremia. Abnormal EKG: -RN notified tennille hurst dr 03/17 that EKG interpreted by Dr. eNal Nichols, cardiology, when patient had chest pain earlier this morning can be consistent with septal UT. -EKG interpretation (from chart, interpreted by night float ): Tachycardia with 110 bpm, PVCs, ST elevations leads V2 and V3. -consulted Dr. Ayala, cardiology, for further recs: he recommends no further workup but maybe outpatient EP Bacteremia: - Blood culture (03/15): No growth to date - Blood culture (03/10): Salmonella group B - Blood culture (03/11): Salmonella group B - Stool culture (03/12): no salmonella, shigella, or campylobacter isolated - Ciprofloxacin 400mg IV Q12 (started on 03/12) - UCx: negative - UA: negative - Influenza A/B: negative - HIV: negative - FTA-Abs, RPR: f/u - CXR (03/11): no active disease --> repeat portable on 03/15 was also negative - ID consulted, Dr. Florence - Abd/chest/pelvis CT (03/16): No acute findings - Echo (03/15): No acute findings - Head CT: f/u Testicular Cancer: - S/p orchiectomy and chemo in 2012 - Encourage outpatient follow up with oncology PPX DVT: SCDs GI: not indicated <Laci Haas - Last Filed: 03/18/18 13:13> Objective - Vital Signs/Intake and Output Vital Signs (last 24 hours): Temp Pulse Resp BP Pulse Ox 98.1 F 85 20 107/61 99 03/18/18 08:00 03/18/18 08:00 03/18/18 08:00 03/18/18 08:00 03/18/18 08:00 Intake and Output: 03/18/18 03/18/18 06:59 18:59 Intake Total 1300 Balance 1300 - Medications Medications: Current Medications Heparin Sodium (Porcine) (Heparin) 5,000 units SC Q8 [facility] Last Admin: 03/18/18 13:08 Dose: 5,000 units Sodium Chloride (Sodium Chloride 0.9%) 1,000 mls @ 150 mls/hr IV .Q6H40M [facility] Last Admin: 03/18/18 08:53 Dose: 150 mls/hr Ceftriaxone Sodium 2 gm/ (Sodium Chloride) 100 mls @ 100 mls/hr IVPB Q12 [facility]; Protocol Last Admin: 03/18/18 09:00 Dose: 100 mls/hr Lactobacillus Acidophilus (Bacid Acidophilus) 1 cap PO BID [facility] Last Admin: 03/18/18 09:00 Dose: 1 cap Ondansetron HCl (Zofran Inj) 4 mg IVP Q6 PRN PRN Reason: Nausea/Vomiting Pantoprazole Sodium (Protonix Ec Tab) 40 mg PO DAILY [facility] Last Admin: 03/18/18 09:00 Dose: 40 mg Vitamin A (Vitamin A & D Oint Ud Foilpak) 1 ea EXT Q8 PRN PRN Reason: Itching / Pruritus Last Admin: 03/12/18 20:47 Dose: 1 ea - Labs Labs: 03/18/18 07:23 03/18/18 07:23 Attending/Attestation - Attestation I have personally seen and examined this patient.: Yes I have fully participated in the care of the patient.: Yes I have reviewed all pertinent clinical information, including history, physical exam and plan: Yes Notes (Text): 03/18/18 13:12 Medical attending: Patient was seen and examined by me. Agree with the above note by the resident The patient was not in any acute distress when I came and saw. He denied chest pain, denied tachycardia, reported no fever, and tolerated his diet. He has been afebrile for almost 24hrs now. Yesterday had a CTA done to assess for PE and this was negative. Abx were changed to Rocephin. Blood cultures are negative at this point Laci Haas
--- NOTE | 2018-03-18 17:14 | CP.PCM.PN ---
Subjective - Date & Time of Evaluation Date of Evaluation: 03/18/18 Time of Evaluation: 09:00 - Subjective Subjective: tmax down on IV Rocephin cont rx total 14 days from time of admission Objective - Vital Signs/Intake and Output Vital Signs (last 24 hours): Temp Pulse Resp BP Pulse Ox 98.1 F 85 20 107/61 99 03/18/18 08:00 03/18/18 08:00 03/18/18 08:00 03/18/18 08:00 03/18/18 08:00 Intake and Output: 03/18/18 03/18/18 06:59 18:59 Intake Total 1300 1480 Balance 1300 1480 - Medications Medications: Current Medications Heparin Sodium (Porcine) (Heparin) 5,000 units SC Q8 [facility] Last Admin: 03/18/18 13:08 Dose: 5,000 units Sodium Chloride (Sodium Chloride 0.9%) 1,000 mls @ 150 mls/hr IV .Q6H40M [facility] Last Admin: 03/18/18 17:11 Dose: 150 mls/hr Ceftriaxone Sodium 2 gm/ (Sodium Chloride) 100 mls @ 100 mls/hr IVPB Q12 [facility]; Protocol Last Admin: 03/18/18 09:00 Dose: 100 mls/hr Lactobacillus Acidophilus (Bacid Acidophilus) 1 cap PO BID [facility] Last Admin: 03/18/18 17:12 Dose: 1 cap Ondansetron HCl (Zofran Inj) 4 mg IVP Q6 PRN PRN Reason: Nausea/Vomiting Pantoprazole Sodium (Protonix Ec Tab) 40 mg PO DAILY [facility] Last Admin: 03/18/18 09:00 Dose: 40 mg Vitamin A (Vitamin A & D Oint Ud Foilpak) 1 ea EXT Q8 PRN PRN Reason: Itching / Pruritus Last Admin: 03/12/18 20:47 Dose: 1 ea - Labs Labs: 03/18/18 07:23 03/18/18 07:23 Assessment and Plan (1) Viral syndrome Status: Acute (2) Salmonella bacteremia Status: Acute
--- NOTE | 2018-03-18 18:42 | PN ---
DATE: 03/18/2018 SUBJECTIVE: The patient denies any palpitation, chest pain or shortness of breath. PHYSICAL EXAMINATION: VITAL SIGNS: Blood pressure 107/61, heart rate 85, temperature 98.1, and respiration 20. HEENT: Normocephalic. CHEST: Clear. HEART: S1 and S2 regular. EXTREMITIES: No edema. LABORATORY DATA: Today's SMA-7 is within normal limit except for creatinine 0.6. Today's hemoglobin and hematocrit are 10.9 and 30.6. White count and platelet count are within normal limit. Venous Doppler of the lower extremities was performed, the report is still pending. Chest CT angiogram showed no evidence of acute central or pulmonary embolism. Right lung mild atelectasis along the and left lung atelectasis in the left base with 2 mm of pleural nodule. ASSESSMENT: 1. Abnormal electrocardiogram with Brugada pattern in one of the patient's electrocardiograms. 2. Salmonella group B bacteremia. 3. Atelectasis. 4. History of testicular carcinoma, status post right orchiectomy. 5. Mild anemia. RECOMMENDATIONS: Continue current IV Rocephin and subcutaneous heparin. Trevin Donis MD
[2018-03-19] MEDS: Sodium Chloride 0.9% 1,000 ML IV SCH ×2 (02:23→14:50)
--- NOTE | 2018-03-19 07:44 | CP.PCM.PN ---
Subjective - Date & Time of Evaluation Date of Evaluation: 03/19/18 Time of Evaluation: 08:00 - Subjective Subjective: PGY1 Medicine note for Dr. Lee. Patient seen and examined at bedside. No overnight events reported. Patient lying in bed comfortably. Patient states he had 2 episodes of non-bloody, watery diarrhea Monday into Monday morning, but it has resolved. Last episode of diarrhea was Monday morning. Patient has no other complaints. Last fever spike was approximately 1AM on 03/17. Patient denies chest pain, SOB, abdominal pain, N/V, F/C, dysuria, hematuria. Objective - Vital Signs/Intake and Output Vital Signs (last 24 hours): Temp Pulse Resp BP Pulse Ox 99.4 F 79 20 100/57 L 98 03/19/18 00:00 03/19/18 00:00 03/19/18 00:00 03/19/18 00:00 03/19/18 00:00 Intake and Output: 03/19/18 03/19/18 06:59 18:59 Intake Total 2500 Balance 2500 - Medications Medications: Current Medications Heparin Sodium (Porcine) (Heparin) 5,000 units SC Q8 [facility] Last Admin: 03/19/18 05:41 Dose: 5,000 units Ceftriaxone Sodium 2 gm/ (Sodium Chloride) 100 mls @ 100 mls/hr IVPB Q12 [facility]; Protocol Last Admin: 03/18/18 21:23 Dose: 100 mls/hr Lactobacillus Acidophilus (Bacid Acidophilus) 1 cap PO BID [facility] Last Admin: 03/18/18 17:12 Dose: 1 cap Ondansetron HCl (Zofran Inj) 4 mg IVP Q6 PRN PRN Reason: Nausea/Vomiting Pantoprazole Sodium (Protonix Ec Tab) 40 mg PO DAILY [facility] Last Admin: 03/18/18 09:00 Dose: 40 mg Vitamin A (Vitamin A & D Oint Ud Foilpak) 1 ea EXT Q8 PRN PRN Reason: Itching / Pruritus Last Admin: 03/12/18 20:47 Dose: 1 ea - Labs Labs: 03/18/18 07:23 03/18/18 07:23 - Constitutional Appears: Non-toxic, No Acute Distress - Head Exam Head Exam: ATRAUMATIC, NORMAL INSPECTION, NORMOCEPHALIC - Eye Exam Eye Exam: EOMI, Normal appearance - ENT Exam ENT Exam: Mucous Membranes Moist - Respiratory Exam Respiratory Exam: Clear to Ausculation Bilateral. absent: Rales, Rhonchi, Wheezes - Cardiovascular Exam Cardiovascular Exam: +S1, +S2 - GI/Abdominal Exam GI & Abdominal Exam: Soft, Normal Bowel Sounds. absent: Rigid, Diminished Bowel Sounds - Extremities Exam Extremities Exam: Full ROM, Normal Inspection. absent: Calf Tenderness, Pedal Edema - Back Exam Back Exam: absent: CVA tenderness (L), CVA tenderness (R) - Neurological Exam Neurological Exam: Alert, Awake, Oriented x3 - Psychiatric Exam Psychiatric exam: Normal Affect, Normal Mood - Skin Skin Exam: Dry, Normal Color, Warm Assessment and Plan - Assessment and Plan (Free Text) Assessment: 27 yo M with H testicular cancer s/p orchiectomy and chemo in 2012, admitted for bacteremia Plan: Bacteremia: - Currently afebrile for ~48 hours - WBC trending down, now 6.7 - Blood culture (03/15): No growth to date - Blood culture (03/10): Salmonella group B - Blood culture (03/11): Salmonella group B - Stool culture (03/12): no salmonella, shigella, or campylobacter isolated - UCx: negative - UA: negative - Influenza A/B: negative - HIV: negative - FTA-Abs, RPR: negative - CXR (03/11): no active disease --> repeat portable on 03/15 was also negative - Chest CT (03/17): 1. No evidence of acute central pulmonary embolism. Some motion artifact at the segmental and subsegmental levels somewhat limit evaluation. For example a questionable filling defect in a subsegmental branch of the right upper lobe pulmonary artery on series 2, image 3 may be the sequelae of motion.2. Right lung: Mild atelectasis along the fissure. 2 millimeter nodule/intra fissural lymph node on series 4, image 52. Atelectasis at the lung bases. 5 millimeter calcified granuloma within the posterior aspect of the right lower lobe. 3. Left lung: Atelectasis at the left lung base. 2 millimeters subpleural nodule along the lateral aspect of the left lower. - Head CT (03/16): No evidence of acute intracranial hemorrhage mass effect or midline shift. The evaluation for possible meningitis or abscess formation is limited without IV contrast administration. If clinically warranted enhanced CT or MRI is suggested for further evaluation. - Abd/chest/pelvis CT (03/16): No acute findings - Echo (03/15): No acute findings - Per ID, Dr. Florence recs: - D/C Ciprofloxacin 400mg IV Q12 (started on 03/12 & D/C on 03/16) - Rocephin 2g Q12 (stated on 03/16) - will need full 14 days of rocephin from date of admission Elevated LFTs - AST/ ALT -> 88/77 (previously s20s) - Will monitor for now Testicular Cancer: - S/p orchiectomy and chemo in 2012 - Encourage outpatient follow up with oncology PPX - DVT: SCDs - HHD Dispo: Possible D/C on 03/20 per LFTs & ID recs for PO abx. D/w Dr. Jesus Nichols, PGY-1
[2018-03-19 08:21] LABS: BASO % 0.7 % (0.0-2.0); EOS # 0.1 K/uL (0.0-0.7); EOS % 1.1 % (0.0-4.0); HEMOGLOBIN 11.2 g/dL (12.0-18.0); LYMPH # 1.7 K/uL (1.0-4.3); LYMPH % 25.2 % (20.0-40.0); MEAN CELL VOLUME 90.2 fL (80.0-94.0); MEAN CORPUSCULAR HEMOGLOBIN 31.5 pg (27.0-31.0); MEAN CORPUSCULAR HGB CONC 34.9 g/dL (33.0-37.0); MEAN PLATELET VOLUME 6.2 fL (7.2-11.7); MONO # 0.5 K/uL (0.0-0.8); MONO % 7.9 % (0.0-10.0); NEUT # 4.4 K/uL (1.8-7.0); NEUT % 65.1 % (50.0-75.0); NRBC % 0.1 % (0.0-2.0); RBC 3.56 Mil/uL (4.40-5.90); RED CELL DISTRIBUTION WIDTH 12.4 % (11.5-14.5); WHITE BLOOD COUNT 6.7 K/uL (4.8-10.8)
[2018-03-19 08:47] LABS: ALB/GLOB RATIO 1.1 (1.0-2.1); ALBUMIN 3.2 g/dL (3.5-5.0); ALT/SGPT 77 U/L (21-72); AST/SGOT 88 U/L (17-59); BLOOD UREA NITROGEN 8 mg/dL (9-20); CALCIUM 8.4 mg/dl (8.6-10.4); GFR NON-AFRICAN AMERICAN > 60
[2018-03-19] MEDS: Lactobacillus Acidophilus 500 MU Cap PO SCH ×2 (10:14→17:40)
[2018-03-19] MEDS: cefTRIAXone 2 GM in Sodium Chloride 0.9% 100 ML IVPB SCH ×2 (10:14→21:29)
[2018-03-19] MEDS: Pantoprazole 40 mg EC Tab PO SCH (10:14)
--- NOTE | 2018-03-19 13:32 | VASCLAB ---
Date of service: 03/17/2018 PROCEDURE: Upper Extremity Venous Duplex Exam HISTORY: r/o DVT PRIORS: None. TECHNIQUE: Bilateral upper extremity, internal jugular, subclavian, axillary, brachial, ulnar, radial, basilic and upper cephalic veins were evaluated. Flow was assessed with color Doppler, compressibility, assessment of phasic flow and augmentation response. Report prepared by CHANTELLE Amanda FINDINGS: RIGHT: 1. Internal Jugular: 1.1. Compressibility - Fully compressible: Thrombus - None : Flow - Phasic: Augmentation -Normal: Reflux - None. 2. Subclavian: 2.1. Compressibility - Fully compressible: Thrombus - None : Flow - Phasic: Augmentation -Normal: Reflux - None. 3. Axillary: 3.1. Compressibility - Fully compressible: Thrombus - None : Flow - Phasic: Augmentation -Normal: Reflux - None. 4. Brachial: 4.1. Compressibility - Fully compressible: Thrombus - None: Flow - Phasic: Augmentation -Normal: Reflux - None. 5. Ulnar: 5.1. Compressibility - Fully compressible: Thrombus - None: Flow - Phasic: Augmentation -Normal: Reflux - None. 6. Radial: 6.1. Compressibility - Fully compressible: Thrombus - None: Flow - Phasic: Augmentation - Normal: Reflux - None. 7. Cephalic: 7.1. Compressibility - Fully compressible: Thrombus - None: Flow - Phasic: Augmentation -Normal: Reflux - None. 8. Basilic: 8.1. Compressibility - Fully compressible: Thrombus - None: Flow - Phasic: Augmentation -Normal: Reflux - None. LEFT: 1. Internal Jugular: 1.1. Compressibility - Fully compressible: Thrombus - None : Flow - Phasic: Augmentation -Normal: Reflux - None. 2. Subclavian: 2.1. Compressibility - Fully compressible: Thrombus - None : Flow - Phasic: Augmentation -Normal: Reflux - None. 3. Axillary: 3.1. Compressibility - Fully compressible: Thrombus - None : Flow - Phasic: Augmentation -Normal: Reflux - None. 4. Brachial: 4.1. Compressibility - Fully compressible: Thrombus - None: Flow - Phasic: Augmentation -Normal: Reflux - None. 5. Ulnar: 5.1. Unable to visualize due to diminutive size. 6. Radial: 6.1. Compressibility - Fully compressible: Thrombus - None: Flow - Phasic: Augmentation - Normal: Reflux - None. 7. Cephalic: 7.1. Compressibility - Fully compressible: Thrombus - None: Flow - Phasic: Augmentation -Normal: Reflux - None. 8. Basilic: 8.1. Compressibility - Fully compressible: Thrombus - None: Flow - Phasic: Augmentation -Normal: Reflux - None. OTHER FINDINGS: Right: None. Left: None. IMPRESSION: Right: No evidence of vein thrombosis of the right upper extremity with excellent venous flow. Normal valve function noted of the right side. Left: No evidence of vein thrombosis of the left upper extremity with excellent venous flow. Normal valve function noted of the left side.
--- NOTE | 2018-03-19 13:33 | VASCLAB ---
Date of service: 03/17/2018 PROCEDURE: Lower Extremity Venous Duplex Exam. HISTORY: r/o DVT PRIORS: None. TECHNIQUE: Bilateral common femoral, femoral, popliteal and posterior tibial, peroneal and great saphenous veins were evaluated. Flow was assessed with color Doppler, compressibility, assessment of phasic flow and augmentation response. Report prepared by CHANTELLE Amanda FINDINGS: RIGHT: 1. Common Femoral Vein: 1.1. Compressibility - Fully compressible: Thrombus - None : Flow - Phasic: Augmentation -Normal: Reflux - None. 2. Femoral Vein: 2.1. Compressibility - Fully compressible: Thrombus - None : Flow - Phasic: Augmentation -Normal: Reflux - None. 3. Popliteal Vein: 3.1. Compressibility - Fully compressible: Thrombus - None : Flow - Phasic: Augmentation -Normal: Reflux - None. 4. Posterior Tibial Vein: 4.1. Compressibility - Fully compressible: Thrombus - None: Flow - Phasic: Augmentation -Normal: Reflux - None. 5. Peroneal Vein: 5.1. Compressibility - Fully compressible: Thrombus - None: Flow - Phasic: Augmentation -Normal: Reflux - None. 6. Great Saphenous Vein: 6.1. Compressibility - Fully compressible: Thrombus - None: Flow - Phasic: Augmentation - Normal: Reflux - None. LEFT: 1. Common Femoral Vein: 1.1. Compressibility - Fully compressible: Thrombus - None: Flow - Phasic: Augmentation -Normal: Reflux - None. 2. Femoral Vein: 2.1. Compressibility - Fully compressible: Thrombus - None: Flow - Phasic: Augmentation -Normal: Reflux - None. 3. Popliteal Vein: 3.1. Compressibility - Fully compressible: Thrombus - None : Flow - Phasic: Augmentation -Normal: Reflux - None. 4. Posterior Tibial Vein: 4.1. Compressibility - Fully compressible: Thrombus - None: Flow - Phasic: Augmentation -Normal: Reflux - None. 5. Peroneal Vein: 5.1. Compressibility - Fully compressible: Thrombus - None: Flow - Phasic: Augmentation -Normal: Reflux - None. 6. Great Saphenous Vein: 6.1. Compressibility - Fully compressible: Thrombus - None: Flow - Phasic: Augmentation - Normal: Reflux - None. OTHER FINDINGS: Right: None significant. Left: None significant. IMPRESSION: Right: No evidence of deep or superficial vein thrombosis of the right lower extremity. Normal valve function noted of the right side. Left: No evidence of deep or superficial vein thrombosis of the left lower extremity. Normal valve function noted of the left side.
--- NOTE | 2018-03-19 18:30 | PN ---
DATE: 03/19/2018 SUBJECTIVE: The patient denies any dizziness, chest pain or shortness of breath. The patient denies any family history of sudden cardiac arrest. PHYSICAL EXAMINATION: VITAL SIGNS: Blood pressure 101/62, heart rate 76, temperature 99.1, and respiration 20. HEENT: Normocephalic. CHEST: Clear. HEART: S1 and S2 regular. EXTREMITIES: No edema. LABORATORY DATA: Today his BUN and creatinine are 8 and 0.7. The rest of his SMA-7 is within normal limit. Today's AST and ALT are 88 and 77 respectively. Today's hemoglobin and hematocrit are 11.2 and 32.1. White count and platelet count are within normal limit. ASSESSMENT: 1. Salmonella bacteremia. 2. Abnormal electrocardiogram only one of the electrocardiograms. There is no family history of sudden cardiac arrest and the patient denies any history of syncope in the past. 3. History of testicular carcinoma, status post right orchiectomy. RECOMMENDATIONS: Continue current IV Rocephin, oral lactobacillus and oral Protonix. Trevin Donis MD
[2018-03-20] MEDS: Sodium Chloride 0.9% 1,000 ML IV SCH ×2 (05:05→11:32)
[2018-03-20 06:24] LABS: BASO % 0.3 % (0.0-2.0); EOS # 0.1 K/uL (0.0-0.7); EOS % 2.4 % (0.0-4.0); HEMOGLOBIN 11.3 g/dL (12.0-18.0); LYMPH # 1.6 K/uL (1.0-4.3); LYMPH % 35.4 % (20.0-40.0); MEAN CELL VOLUME 90.8 fL (80.0-94.0); MEAN CORPUSCULAR HEMOGLOBIN 31.9 pg (27.0-31.0); MEAN CORPUSCULAR HGB CONC 35.1 g/dL (33.0-37.0); MEAN PLATELET VOLUME 5.8 fL (7.2-11.7); MONO # 0.6 K/uL (0.0-0.8); MONO % 12.3 % (0.0-10.0); NEUT # 2.3 K/uL (1.8-7.0); NEUT % 49.6 % (50.0-75.0); NRBC % 0.1 % (0.0-2.0); RBC 3.56 Mil/uL (4.40-5.90); RED CELL DISTRIBUTION WIDTH 12.1 % (11.5-14.5); WHITE BLOOD COUNT 4.6 K/uL (4.8-10.8)
[2018-03-20 06:43] LABS: ALBUMIN 3.1 g/dL (3.5-5.0); ALT/SGPT 226 U/L (21-72); AST/SGOT 180 U/L (17-59); BLOOD UREA NITROGEN 9 mg/dL (9-20); CALCIUM 8.3 mg/dl (8.6-10.4); GFR NON-AFRICAN AMERICAN > 60
--- NOTE | 2018-03-20 07:08 | CP.PCM.PN ---
Subjective - Date & Time of Evaluation Date of Evaluation: 03/20/18 Time of Evaluation: 07:05 - Subjective Subjective: PGY1 Medicine Progress note for Dr. Lee. Patient seen and examined at bedside. No overnight events reported. Patient lying in bed comfortably. Patient states he had one episode of non bloody, watery diarrhea yesterday early afternoon; however, he subsequently had another bowel movement that was normal Patient otherwise, feels normal and has has no other complaints. Last fever spike was approximately 1AM on 03/17. Patient mandy es chest pain, SOB, abdominal pain, N/V, F/C, dysuria, hematuria. Objective - Vital Signs/Intake and Output Vital Signs (last 24 hours): Temp Pulse Resp BP Pulse Ox 98.6 F 76 18 101/60 98 03/20/18 00:00 03/20/18 00:00 03/20/18 00:00 03/20/18 00:00 03/20/18 00:00 Intake and Output: 03/20/18 03/20/18 06:59 18:59 Intake Total 2700 Output Total 500 Balance 2200 - Medications Medications: Current Medications Heparin Sodium (Porcine) (Heparin) 5,000 units SC Q8 [facility] Last Admin: 03/20/18 05:24 Dose: 5,000 units Ceftriaxone Sodium 2 gm/ (Sodium Chloride) 100 mls @ 100 mls/hr IVPB Q12 [facility]; Protocol Last Admin: 03/19/18 21:29 Dose: 100 mls/hr Lactobacillus Acidophilus (Bacid Acidophilus) 1 cap PO BID [facility] Last Admin: 03/19/18 17:40 Dose: 1 cap Ondansetron HCl (Zofran Inj) 4 mg IVP Q6 PRN PRN Reason: Nausea/Vomiting Pantoprazole Sodium (Protonix Ec Tab) 40 mg PO DAILY [facility] Last Admin: 03/19/18 10:14 Dose: 40 mg Vitamin A (Vitamin A & D Oint Ud Foilpak) 1 ea EXT Q8 PRN PRN Reason: Itching / Pruritus Last Admin: 03/12/18 20:47 Dose: 1 ea - Labs Labs: 03/20/18 06:19 03/20/18 06:19 - Constitutional Appears: Non-toxic, No Acute Distress - Head Exam Head Exam: ATRAUMATIC, NORMAL INSPECTION, NORMOCEPHALIC - Eye Exam Eye Exam: EOMI, Normal appearance Pupil Exam: NORMAL ACCOMODATION - ENT Exam ENT Exam: Mucous Membranes Moist - Respiratory Exam Respiratory Exam: Clear to Ausculation Bilateral, NORMAL BREATHING PATTERN. absent: Rales, Rhonchi, Wheezes - Cardiovascular Exam Cardiovascular Exam: +S1, +S2. absent: Murmur - GI/Abdominal Exam GI & Abdominal Exam: Soft, Normal Bowel Sounds. absent: Firm, Guarding, Rigid, Tenderness, Mass, Organomegaly - Extremities Exam Extremities Exam: Full ROM, Normal Inspection. absent: Calf Tenderness, Pedal Edema - Back Exam Back Exam: absent: CVA tenderness (L), CVA tenderness (R) - Neurological Exam Neurological Exam: Alert, Awake, Oriented x3 - Psychiatric Exam Psychiatric exam: Normal Affect, Normal Mood - Skin Skin Exam: Dry, Normal Color, Warm Assessment and Plan - Assessment and Plan (Free Text) Assessment: 27 yo M with H testicular cancer s/p orchiectomy and chemo in 2012, admitted for bacteremia, now having elevated LFTs Plan: Elevated LFTs - Trending up: AST/ ALT -> 180/226 (03/20); 88/77 (03/19); previously in 20s/20s - Per ID, Dr. Florence recs: - possible abscess / to salmonella bacteremia - D/C Ciprofloxacin 400mg IV Q12 (started on 03/12 & D/C'ed on 03/16) - Rocephin 2g Q12 (stated on 03/16), now to 2g Q24H (03/20) - will need full 14 days of rocephin from date of admission - HIV negative - F/u hepatitis panel - F/u abdominal ultrasound Bacteremia: - Currently afebrile for >72 hours - WBC normalized - Blood culture (03/15): No growth to date - Blood culture (03/10): Salmonella group B - Blood culture (03/11): Salmonella group B - Stool culture (03/12): no salmonella, shigella, or campylobacter isolated - UCx: negative - UA: negative - Influenza A/B: negative - HIV: negative - FTA-Abs, RPR: negative - CXR (03/11): no active disease --> repeat portable on 03/15 was also negative - Chest CT (03/17): 1. No evidence of acute central pulmonary embolism. Some motion artifact at the segmental and subsegmental levels somewhat limit evaluation. For example a questionable filling defect in a subsegmental branch of the right upper lobe pulmonary artery on series 2, image 3 may be the sequelae of motion.2. Right lung: Mild atelectasis along the fissure. 2 millimeter nodule/intra fissural lymph node on series 4, image 52. Atelectasis at the lung bases. 5 millimeter calcified granuloma within the posterior aspect of the right lower lobe. 3. Left lung: Atelectasis at the left lung base. 2 millimeters subpleural nodule along the lateral aspect of the left lower. - Head CT (03/16): No evidence of acute intracranial hemorrhage mass effect or midline shift. The evaluation for possible meningitis or abscess formation is limited without IV contrast administration. If clinically warranted enhanced CT or MRI is suggested for further evaluation. - Abd/chest/pelvis CT (03/16): No acute findings - Echo (03/15): No acute findings - Per ID, Dr. Florence recs: - D/C Ciprofloxacin 400mg IV Q12 (started on 03/12 & D/C'ed on 03/16) - Rocephin 2g Q12 (stated on 03/16), now to 2g Q24H - will need full 14 days of rocephin from date of admission (through 03/26) Testicular Cancer: - S/p orchiectomy and chemo in 2012 - Encourage outpatient follow up with oncology PPX - DVT: SCDs - HHD - GI: protonix 40mg PO daily, zofran 4mg Q6 PRN Dispo: Possible D/C on 03/20 per LFTs & ID recs for PO abx. D/w Dr. Jesus Nichols, PGY-1
[2018-03-20 08:05] VITALS: RESP 20
[2018-03-20] MEDS: Lactobacillus Acidophilus 500 MU Cap PO SCH ×2 (09:36→17:49)
[2018-03-20] MEDS: Pantoprazole 40 mg EC Tab PO SCH (09:36)
[2018-03-20] MEDS: cefTRIAXone 2 GM in Sodium Chloride 0.9% 100 ML IVPB SCH (09:37)
--- NOTE | 2018-03-20 15:57 | US ---
HISTORY: elevated lfts and salmonella bacteremia COMPARISON: CT chest, abdomen, and pelvis with IV contrast performed 03/16/18 TECHNIQUE: Sonographic evaluation of the abdomen. FINDINGS: LIVER: Measures 17.2 cm in sagittal dimension. Echogenic liver may be seen in setting of hepatic parenchymal disease or fatty infiltration. No focal hepatic mass identified. The main portal vein appears patent with normal directional flow. No intrahepatic bile duct dilatation. GALLBLADDER: No gallstones. No gallbladder wall thickening. Negative sonographic Caba's sign as assessed by the music researcher. COMMON BILE DUCT: Measures 4 mm. PANCREAS: Not well visualized. RIGHT KIDNEY: Measures 11.2 x 5.5 x 5.1 cm. No obstructing calculus or hydronephrosis identified. LEFT KIDNEY: Measures 9.7 x 4.9 x 5.0 cm. No obstructing calculus or hydronephrosis identified. SPLEEN: Measures approximately 9.9 cm.. AORTA: Limited views appear unremarkable. IVC: Limited views appear unremarkable. OTHER FINDINGS: None. IMPRESSION: Limited study. Punctate splenic calcification as well as left renal cyst demonstrated on CT not appreciated on submitted views. Echogenic liver may be seen in setting of hepatic parenchymal disease or fatty infiltration.
[2018-03-20 16:57] LABS: HEPATITIS B SURFACE AG Negative (NEGATIVE)
[2018-03-20 17:03] LABS: HEPATITIS A IGM NEGATIVE (NEGATIVE); HEPATITIS B CORE AB NEGATIVE (NEGATIVE)
[2018-03-20 17:15] LABS: HEPATITIS C ANTIBODY NEGATIVE (NEGATIVE)
--- NOTE | 2018-03-20 20:42 | CARD ---
APPROVED REPORT Date of service: 03/16/2018 EKG Measurement Heart [id number] <Conclusion> Normal sinus rhythm Septal infarct, age undetermined Abnormal ECG
--- NOTE | 2018-03-20 22:22 | CARD ---
APPROVED REPORT Date of service: 03/16/2018 EKG Measurement Heart [id number] <Conclusion> Normal sinus rhythm Nonspecific T wave abnormality Abnormal ECG
[2018-03-21 07:42] LABS: BASO % 0.4 % (0.0-2.0); EOS # 0.1 K/uL (0.0-0.7); EOS % 2.4 % (0.0-4.0); HEMOGLOBIN 12.9 g/dL (12.0-18.0); LYMPH # 2.4 K/uL (1.0-4.3); MEAN CELL VOLUME 90.5 fL (80.0-94.0); MEAN CORPUSCULAR HEMOGLOBIN 31.2 pg (27.0-31.0); MEAN CORPUSCULAR HGB CONC 34.5 g/dL (33.0-37.0); MEAN PLATELET VOLUME 5.9 fL (7.2-11.7); MONO # 0.7 K/uL (0.0-0.8); MONO % 10.9 % (0.0-10.0); NEUT % 48.3 % (50.0-75.0); RBC 4.14 Mil/uL (4.40-5.90); RED CELL DISTRIBUTION WIDTH 12.1 % (11.5-14.5); WHITE BLOOD COUNT 6.3 K/uL (4.8-10.8)
[2018-03-21 07:53] VITALS: BP 116/69; PULSE 65; TEMP 98.1; O2SAT 99
[2018-03-21 08:41] LABS: ALB/GLOB RATIO 1.2 (1.0-2.1); ALBUMIN 3.8 g/dL (3.5-5.0); ALT/SGPT 353 U/L (21-72); AST/SGOT 221 U/L (17-59); BLOOD UREA NITROGEN 10 mg/dL (9-20); CALCIUM 8.7 mg/dl (8.6-10.4); GFR NON-AFRICAN AMERICAN > 60
--- NOTE | 2018-03-21 09:25 | CP.PCM.PN ---
Objective - Vital Signs/Intake and Output Vital Signs (last 24 hours): Temp Pulse Resp BP Pulse Ox 98.1 F 65 20 116/69 99 03/21/18 07:51 03/21/18 07:51 03/21/18 07:51 03/21/18 07:51 03/21/18 07:51 - Medications Medications: Current Medications Heparin Sodium (Porcine) (Heparin) 5,000 units SC Q8 [facility] Last Admin: 03/21/18 06:52 Dose: 5,000 units Ceftriaxone Sodium 2 gm/ (Sodium Chloride) 100 mls @ 100 mls/hr IVPB Q24H [facility]; Protocol Lactobacillus Acidophilus (Bacid Acidophilus) 1 cap PO BID [facility] Last Admin: 03/20/18 17:49 Dose: 1 cap Ondansetron HCl (Zofran Inj) 4 mg IVP Q6 PRN PRN Reason: Nausea/Vomiting Pantoprazole Sodium (Protonix Ec Tab) 40 mg PO DAILY [facility] Last Admin: 03/20/18 09:36 Dose: 40 mg Vitamin A (Vitamin A & D Oint Ud Foilpak) 1 ea EXT Q8 PRN PRN Reason: Itching / Pruritus Last Admin: 03/12/18 20:47 Dose: 1 ea - Labs Labs: 03/21/18 07:21 03/21/18 07:21
[2018-03-21] MEDS ORDERED: cefTRIAXone 2 GM in Sodium Chloride 0.9% 100 ML IVPB SCH (10:00)
[2018-03-21] MEDS: Lactobacillus Acidophilus 500 MU Cap PO SCH (11:14)
[2018-03-21] MEDS: Pantoprazole 40 mg EC Tab PO SCH (11:31)
[2018-03-21 12:14] LABS: INR 1.2; PROTHROMBIN TIME 12.7 SECONDS (9.7-12.2)
--- NOTE | 2018-03-21 16:39 | CP.PCM.DIS ---
Provider - Provider Date of Admission: 03/11/18 13:33 Attending physician: Alba Lee MD Consults: Dr. Florence (ID) Time Spent in preparation of Discharge (in minutes): 45 Diagnosis - Discharge Diagnosis (1) Salmonella bacteremia Status: Acute Comment: ceftriaxone X 10 days, repeat cultures negative (2) Elevated LFTs Status: Acute Comment: will continue to monitor outpatient, possibly 2/2 to drug reaction, U/S negative, pt/ptt WNL Hospital Course - Lab Results Lab Results: Micro Results 03/16/18 09:29 Blood Blood Culture - Final NO GROWTH AFTER 5 DAYS 03/16/18 09:29 Blood Gram Stain - Final TEST NOT PERFORMED 03/16/18 08:56 Blood Blood Culture - Final NO GROWTH AFTER 5 DAYS 03/16/18 08:56 Blood Gram Stain - Final TEST NOT PERFORMED 03/15/18 12:20 Blood Blood Culture - Final NO GROWTH AFTER 5 DAYS 03/15/18 12:20 Blood Gram Stain - Final TEST NOT PERFORMED 03/15/18 08:21 Blood Blood Culture - Final NO GROWTH AFTER 5 DAYS 03/15/18 08:21 Blood Gram Stain - Final TEST NOT PERFORMED 03/14/18 13:53 Blood-Venous Blood Culture - Final NO GROWTH AFTER 5 DAYS 03/11/18 12:20 Blood Blood Culture - Final NO GROWTH AFTER 5 DAYS 03/11/18 12:20 Blood Gram Stain - Final TEST NOT PERFORMED 03/11/18 11:51 Blood Blood Culture - Final Salmonella Group B 03/11/18 11:51 Blood Gram Stain - Final 03/12/18 Unknown Stool Stool Culture - Final NO SALMONELLA, SHIGELLA OR CAMPYLOBACTER ISOLATED. Most Recent Lab Values WBC 6.3 K/uL (4.8-10.8) 03/21/18 07:21 RBC 4.14 Mil/uL (4.40-5.90) L 03/21/18 07:21 Hgb 12.9 g/dL (12.0-18.0) 03/21/18 07:21 Hct 37.4 % (35.0-51.0) 03/21/18 07:21 MCV 90.5 fL (80.0-94.0) 03/21/18 07:21 MCH 31.2 pg (27.0-31.0) H 03/21/18 07:21 MCHC 34.5 g/dL (33.0-37.0) 03/21/18 07:21 RDW 12.1 % (11.5-14.5) 03/21/18 07:21 Plt Count 436 K/uL (130-400) H 03/21/18 07:21 MPV 5.9 fL (7.2-11.7) L 03/21/18 07:21 Neut % (Auto) 48.3 % (50.0-75.0) L 03/21/18 07:21 Lymph % (Auto) 38.0 % (20.0-40.0) 03/21/18 07:21 Coos % (Auto) 10.9 % (0.0-10.0) H 03/21/18 07:21 Eos % (Auto) 2.4 % (0.0-4.0) 03/21/18 07:21 Baso % (Auto) 0.4 % (0.0-2.0) 03/21/18 07:21 Neut # (Auto) 3.0 K/uL (1.8-7.0) 03/21/18 07:21 Lymph # (Auto) 2.4 K/uL (1.0-4.3) 03/21/18 07:21 [place] # (Auto) 0.7 K/uL (0.0-0.8) 03/21/18 07:21 Eos # (Auto) 0.1 K/uL (0.0-0.7) 03/21/18 07:21 Baso # (Auto) 0.0 K/uL (0.0-0.2) 03/21/18 07:21 PT 12.7 SECONDS (9.7-12.2) H 03/21/18 11:55 INR 1.2 03/21/18 11:55 APTT 36 SECONDS (21-34) H 03/21/18 11:55 D-Dimer, Quantitative 308 ng/mlDDU (0-243) H 03/16/18 21:05 Puncture Site Lra 03/15/18 08:47 pCO2 30 mm/Hg (35-45) L 03/15/18 08:47 pO2 120 mm/Hg (80-100) H 03/15/18 08:47 HCO3 22.4 mmol/L (21-28) 03/15/18 08:47 ABG pH 7.43 (7.35-7.45) 03/15/18 08:47 ABG Total CO2 20.8 mmol/L (22-28) L 03/15/18 08:47 ABG O2 Saturation 97.4 % (95-98) 03/15/18 08:47 ABG Base Excess -3.3 mmol/L (-2.0-3.0) L 03/15/18 08:47 Jakob Test Pos 03/15/18 08:47 ABG Potassium 3.2 mmol/L (3.6-5.2) L 03/15/18 08:47 VBG pH 7.36 (7.32-7.43) 03/11/18 11:54 VBG pCO2 51 mmHg (40-60) 03/11/18 11:54 VBG HCO3 25.4 mmol/L 03/11/18 11:54 VBG Total CO2 30.4 mmol/L (22-28) H 03/11/18 11:54 VBG O2 Sat (Calc) 58.4 % (40-65) 03/11/18 11:54 VBG Base Excess 2.4 mmol/L (0.0-2.0) H 03/11/18 11:54 VBG Potassium 3.7 mmol/L (3.6-5.2) 03/11/18 11:54 A-a O2 Difference 71.0 mm/Hg 03/15/18 08:47 Respiratory Index 0.6 03/15/18 08:47 Sodium 137.0 mmol/l (132-148) 03/15/18 08:47 Chloride 109.0 mmol/L (98-107) H 03/15/18 08:47 Glucose 125 mg/dl (75-110) H 03/15/18 08:47 Lactate 1.8 mmol/L (0.7-2.1) 03/15/18 08:47 Liter Flow 3.0 03/15/18 08:47 FiO2 32.0 % 03/15/18 08:47 Sodium 141 mmol/L (132-148) 03/21/18 07:21 Potassium 4.1 mmol/L (3.6-5.2) 03/21/18 07:21 Chloride 106 mmol/L (98-107) 03/21/18 07:21 Carbon Dioxide 26 mmol/L (22-30) 03/21/18 07:21 Anion Gap 13 (10-20) 03/21/18 07:21 BUN 10 mg/dL (9-20) 03/21/18 07:21 Creatinine 0.8 mg/dL (0.8-1.5) 03/21/18 07:21 Est GFR ( Amer) > 60 03/21/18 07:21 Est GFR (Non-Af Amer) > 60 03/21/18 07:21 POC Glucose (mg/dL) 120 mg/dL (65-110) H 03/15/18 08:09 Random Glucose 88 mg/dL (75-110) 03/21/18 07:21 Lactic Acid 0.8 mmol/L (0.7-2.1) 03/16/18 08:56 Calcium 8.7 mg/dl (8.6-10.4) 03/21/18 07:21 Phosphorus 3.4 mg/dL (2.5-4.5) 03/21/18 07:21 Magnesium 2.3 mg/dL (1.6-2.3) 03/21/18 07:21 Total Bilirubin 0.4 mg/dL (0.2-1.3) 03/21/18 07:21 AST 221 U/L (17-59) H D 03/21/18 07:21 ALT 353 U/L (21-72) H D 03/21/18 07:21 Alkaline Phosphatase 80 U/L (38-126) 03/21/18 07:21 Troponin I < 0.0120 ng/mL (0.00-0.120) 03/17/18 10:43 Total Protein 7.1 g/dL (6.3-8.3) 03/21/18 07:21 Albumin 3.8 g/dL (3.5-5.0) 03/21/18 07:21 Globulin 3.3 gm/dL (2.2-3.9) 03/21/18 07:21 Albumin/Globulin Ratio 1.2 (1.0-2.1) 03/21/18 07:21 Procalcitonin 0.11 NG/ML (0.19-0.49) L 03/15/18 08:21 Arterial Blood Potassium 3.2 mmol/L (3.6-5.2) L 03/15/18 08:47 Venous Blood Potassium 3.7 mmol/L (3.6-5.2) 03/11/18 11:54 Urine Color Yellow (YELLOW) 03/11/18 11:51 Urine Clarity Clear (Clear) 03/11/18 11:51 Urine pH 8.0 (5.0-8.0) 03/11/18 11:51 Ur Specific [place] 1.019 (1.003-1.030) 03/11/18 11:51 Urine Protein Negative mg/dL (NEGATIVE) 03/11/18 11:51 Urine Glucose (UA) Normal mg/dL (Normal) 03/11/18 11:51 Urine Ketones Negative mg/dL (NEGATIVE) 03/11/18 11:51 Urine Blood Negative (NEGATIVE) 03/11/18 11:51 Urine Nitrate Negative (NEGATIVE) 03/11/18 11:51 Urine Bilirubin Negative (NEGATIVE) 03/11/18 11:51 Urine Urobilinogen 4.0 mg/dL (0.2-1.0) 03/11/18 11:51 Ur Leukocyte Esterase Neg Tiffanie/uL (Negative) 03/11/18 11:51 Urine WBC (Auto) 1 /hpf (0-5) 03/11/18 11:51 Urine RBC (Auto) 2 /hpf (0-3) 03/11/18 11:51 RPR Nonreactive (NONREACTIVE) 03/16/18 13:57 T.pallidum Ab (FTA-ABS) Nonreactive (Nonreactive) 03/16/18 13:57 Hepatitis A IgM Ab Negative (NEGATIVE) 03/20/18 16:00 Hep Bs Antigen Negative (NEGATIVE) 03/20/18 16:00 Hep Bs Antibody Positive (NEGATIVE) 03/20/18 16:43 Hep B Core IgM Ab Negative (NEGATIVE) 03/20/18 16:00 Hepatitis C Antibody Negative (NEGATIVE) 03/20/18 16:00 HIV-1 RNA Qnt (RT-PCR) <1.30 not detected (Not Detected) 03/17/18 09:15 HIV 1&2 Antibody Screen Negative (NEGATIVE) 03/13/18 16:14 Influenza Typ A,B (EIA) Negative for flu a/b (NEGATIVE) 03/15/18 09:29 Mycoplasma pneumon IgM Negative (NEGATIVE) 03/15/18 09:56 - Hospital Course Hospital Course: H&P Pt is a 27yo M with H testicular cancer s/p orchiectomy and chemo in 2012, presenting to ED after being told he has positive blood cultures. Pt reports subjective fevers, chills, body aches, nausea, 2 episodes of NB/NB vomiting that began on Monday. He visited the [facility] ED later that week, received a CT of the abdomen which he reports was normal, and was sent home. He visited [facility] ED on 03/10, refused to be scanned again, but blood and urine cultures were obtained. He was discharged before given results, and was later called to return because blood culture was positive for Gram - rods. Pt return to [facility] ED today, but says symptoms have resolved. Pt also reports 10lb weight loss over the past year, claiming he feels full faster than before and has decreased appetite. He denies any chest pain, shortness of breath, abdominal pain, diarrhea, dysuria, pyuria, or difficulty urinating. Hospital course: Patient had salmonella bacteremia, was treated w/ ceftriaxone, repeat cultures negative. Near D/C patient began having a uptrend in LFTs, ultrasound was negative, hepatitis panel was negative, PT/PTT wnl. Informed patient he will need outpatinet follow up on Monday for his acute elevation of LFTs at the [facility]. Provided patient with walk in appointment card provided by java front end web developer. Above information was informed to patient via [employer] services ID# [id number]. Patient understood and stated he will go to the clinic on Monday. Above is only a brief hospital course of patient. See EMR for full details. Below are the discharge instructions provided to the patient: Patient is stable for discharge per Dr. Lee. Please follow up in the [facility] on Monday03/23/18 for blood work no later than 8:30 AM. Please bring the clinic appointment card provided to you upon discharge to the clinic. If any of the symptoms return or worsen, please return to the nearest emergency medical facility. Take care. El paciente est estable para el cierra segn el Dr. Lee. Por favor cristiane el seguimiento en la [facility] el viernes 23/03/18 para un anlisis de karime a ms tardar a las 8:30 AM. Por favor traiga la tarjeta de jan de la clnica que se le proporcion al momento del cierra a la clnica. Si alguno de los sntomas reaparece o empeora, regrese al centro waico de emergencia ms delfina. Cudate. Discharge Exam - Head Exam Head Exam: ATRAUMATIC, NORMAL INSPECTION, NORMOCEPHALIC - Eye Exam Eye Exam: EOMI, Normal appearance Pupil Exam: NORMAL ACCOMODATION - ENT Exam ENT Exam: Mucous Membranes Moist - Respiratory Exam Respiratory Exam: NORMAL BREATHING PATTERN. absent: Clear to PA & Lateral, Wheezes, UNREMARKABLE - Cardiovascular Exam Cardiovascular Exam: +S1, +S2. absent: Systolic Murmur - GI/Abdominal Exam GI & Abdominal Exam: Normal Bowel Sounds, Soft. absent: Tenderness - Extremities Exam Extremities exam: full ROM Additional comments: negative calf tenderness, negative pedal edema - Back Exam Back exam: absent: CVA tenderness (L), CVA tenderness (R) - Neurological Exam Neurological exam: Alert, Oriented x3 - Psychiatric Exam Psychiatric exam: Normal Affect, Normal Mood - Skin Skin Exam: Dry, Normal Color, Warm Discharge Plan - Follow Up Plan Condition: STABLE Disposition: HOME/ ROUTINE Instructions: Salmonella Infection (GEN) Additional Instructions: Patient is stable for discharge per Dr. Lee. Please follow up in the [facility] on Monday03/23/18 for blood work no later than 8:30 AM. Please bring the clinic appointment card provided to you upon discharge to the clinic. If any of the symptoms return or worsen, please return to the nearest emergency medical facility. Take care. El paciente est estable para el cierra segn el Dr. Lee. Por favor cristiane el seguimiento en la [facility] el viernes 23/03/18 para un anlisis de karime a ms tardar a las 8:30 AM. Por favor traiga la tarjeta de jan de la clnica que se le proporcion al momento del cierra a la clnica. Si alguno de los sntomas reaparece o empeora, regrese al centro waico de emergencia ms delfina. Cudate. Referrals: Ambrose Florence MD [Staff Provider] -
== END 2018-03-21 15:10 | disposition home or self-care (01) | DRG 724 ==
LOC: C.ER 10:56 → C.9E 13:33 → C.3T 15:10 → C.9E 15:27 → C.3T 15:31 → C.5S 03-12 17:25
PROVIDERS: ADMIT Internal Medicine; ATTEND Internal Medicine
DX: A02.9 Salmonella infection, unspecified (principal); R78.81 Bacteremia; B34.9 Viral infection, unspecified; D64.9 Anemia, unspecified; Z85.47 Personal history of malignant neoplasm of testis; Z90.79 Acquired absence of other genital organ(s); Z92.21 Personal history of antineoplastic chemotherapy

== ENCOUNTER 2018-05-18 15:53 | Emergency (ER) | payer OTHER ==
[2018-05-18 16:03] VITALS: BMI 22.4
[2018-05-18 16:04] VITALS: BP 115/73; PULSE 87; RESP 18; TEMP 98; O2SAT 99
--- NOTE | 2018-05-18 17:30 | C.PDOC ---
History Of Present Illness 28 year old male presents to the emergency department with complaints of left wrist pain for the last week. 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 Patient states that he has not taken anything for the pain, and qualifies the pain as a dull, constant pain worse with movement, 6/10 in severity. Time Seen by Provider: 05/18/18 16:49 Chief Complaint (Nursing): Finger,Hand,&Wrist History Per: Patient History/Exam Limitations: no limitations Onset/Duration Of Symptoms: Persistent, Other (1 week) Quality: Dull, "Pain" Pain Scale Rating Of: 6 Exacerbating Factor(s): Movement Past Medical History Reviewed: Historical Data, Nursing Documentation, Vital Signs Vital Signs: Last Vital Signs Temp 98.0 F 05/18/18 16:02 Pulse 87 05/18/18 16:02 Resp 18 05/18/18 16:02 BP 115/73 05/18/18 16:02 Pulse Ox 99 05/18/18 16:02 - Medical History PMH: No Chronic Diseases Surgical History: No Surg Hx Family History: States: No Known Family Hx - Social History Hx Alcohol Use: Yes Hx Substance Use: No - Immunization History Hx Tetanus Toxoid Vaccination: No Hx Influenza Vaccination: No Hx Pneumococcal Vaccination: No Review Of Systems Except As Marked, All Systems Reviewed And Found Negative. Constitutional: Negative for: Fever, Chills Gastrointestinal: Negative for: Nausea, Vomiting, Diarrhea Musculoskeletal: Positive for: Hand Pain (left wrist) Neurological: Negative for: Weakness, Numbness Physical Exam - Physical Exam Appears: Non-toxic, No Acute Distress Skin: Normal Color, Warm, Dry Head: Atraumatic, Normacephalic Eye(s): bilateral: Normal Inspection Neck: Normal, Supple Chest: Symmetrical, No Tenderness Extremity: Normal ROM (ROM at left wrist intact), Tenderness (minimal tenderness to palpation at left wrist), No Swelling Pulses: Left Radial: Normal, Right Radial: Normal Neurological/Psych: Oriented x3, Normal Speech, Normal Cognition ED Course And Treatment O2 Sat by Pulse Oximetry: 99 (RA) Pulse Ox Interpretation: Normal Medical Decision Making Medical Decision Making: Plan: Motrin 600mg PO Tylenol 650mg PO Disposition Counseled Patient/Family Regarding: Diagnosis, Need For Followup, Rx Given - Disposition Disposition: HOME/ ROUTINE Disposition Time: :28 Condition: STABLE Prescriptions: Ibuprofen [Motrin] 600 mg PO TID #15 tab Instructions: Muscle and Bone Pain (DC) Forms: Gen Discharge Inst Citizen [place], [facility] (Citizen [place]), Work Excuse - Clinical Impression Clinical Impression: Joint pain, Left wrist pain - Scribe Statement The provider has reviewed the documentation as recorded by the Scribe (Solis Lynn) Provider Attestation: All medical record entries made by the Scribe were at my direction and personally dictated by me. I have reviewed the chart and agree that the record accurately reflects my personal performance of the history, physical exam, medical decision making, and the department course for this patient. I have also personally directed, reviewed, and agree with the discharge instructions and disposition.
== END 2018-05-18 17:37 | disposition home or self-care (01) ==
LOC: C.ER 15:53
DX: M25.532 Pain in left wrist (principal)